=== PATIENT | female | born 1945 | race Caucasian/White ===

== ENCOUNTER 2019-07-07 18:07 | Inpatient (IN) | payer OTHER ==
[~2019-07-07] VITALS: Ht 167.6 cm; Wt 73.0 kg
[2019-07-07 18:20] VITALS: BP 140/70
--- NOTE | 2019-07-07 18:20 | NUR ---
ED Nurse Note: pt ambulated into ed from home with CO coughing, sore throat, headache, jaw pain, teeth pain, flu like symptoms that started last night, pain 8/10. pt aao x 4. ERMD at bedside. Pt reports taking warfarin, recently having open heart surgery, and hx of anemia
--- NOTE | 2019-07-07 18:30 | NUR ---
ED Nurse Note: iv started, medications adminstered. pt tolerated well. flu swab sent to lab
[2019-07-07] MEDS: Albuterol ud Inhalation HHN SCH ×3 (18:57→19:03)
--- NOTE | 2019-07-07 18:59 | Emergency Room Report ---
History of Present Illness General Chief Complaint: Flu Like Symptoms Source: Patient (Chet Garcia) Present Illness HPI 73-year-old female with history of heart failure, pacemaker, renal failure, and 2 open heart surgeries here complaining of 1 day of cough and congestion, fever and chills. [place], reports the last time that she had similar symptoms she ended up having pneumonia. Patient is on carvedilol, warfarin, lisinopril, amlodipine. 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 Complains of chest pain however denies pain radiation. Complains of shortness of breath, headache, and chills. Patient has pulse ox of 93%. Vital signs are otherwise within normal limits. Patient appears in mild distress. Denies tobacco smoke, drug use, alcohol intake. Denies pleuritic chest pain, leg swelling, abdominal pain, nausea vomiting. Has been taking Tylenol with moderate relief her symptoms. (Chet Garcia) Allergies: Coded Allergies: No Known Allergies (Unverified , 07/07/19) Patient History Past Medical History: see triage record Past Surgical History: unable to obtain Pertinent Family History: none Now: No Immunizations: UTD Reviewed Nursing Documentation: PMH: Agreed; PSxH: Agreed (Chet Garcia) Nursing Documentation-PMH Past Medical History: No History, Except For Hx Cardiac Problems: Yes - mechanical heart valve Hx Pacemaker: Yes (Chet Garcia) Review of Systems All Other Systems: negative except mentioned in HPI (Chet Garcia) Physical Exam Vital Signs Date Time Temp Pulse Resp B/P (MAP) Pulse Ox O2 Delivery O2 Flow Rate FiO2 07/07/19 18:16 99.5 80 20 137/72 (93) 93 Room Air Sp02 EP Interpretation: abnormal - pulse ox 93% General Appearance: no apparent distress, alert, GCS 15, non-toxic Head: normocephalic, atraumatic Eyes: bilateral eye normal inspection, bilateral eye PERRL ENT: hearing grossly normal, normal pharynx, no angioedema, normal voice Neck: full range of motion, supple, thyroid normal, no meningismus, no bony tend, no carotid bruits, supple/symm/no masses Respiratory: chest non-tender, no respiratory distress, no retraction, no accessory muscle use, no wheezing, decreased breath sounds, speaking full sentences Cardiovascular #1: no edema, no gallop, no murmur, normal capillary refill, other - irregular rhythm Gastrointestinal: normal bowel sounds, non tender, soft, non-distended, no guarding, no rebound Rectal: deferred Genitourinary: no CVA tenderness Musculoskeletal: back normal, normal range of motion, no calf tenderness, gait/ station normal, non-tender Neurologic: alert, motor strength/tone normal, oriented x3, sensory intact, responsive, speech normal Psychiatric: judgement/insight normal, memory normal, mood/affect normal, no suicidal/homicidal ideation Skin: no rash Lymphatic: no adenopathy (Chet Garcia) Medical Decision Making PA Attestation All diagnoses and treatment plans were reviewed and discussed with my supervising physician Dr. Cronin (Chet Garcia) PA Attestation I participated in the care of this patient along with DONG Jolly Briefly, this is a 73-year-old female with a history of CAD status post CABG, heart failure status post pacemaker, chronic kidney disease presenting for evaluation of shortness of breath and cough. Symptoms started earlier today. Came in tachypneic, saturating 93%. Chest x-ray concerning for right lower lobe pneumonia. Treated with ceftriaxone azithromycin. Also signs of pulmonary congestion consistent with her history of CHF. Peptide elevated and she was given Lasix. Saturations improving. She is on a percent on room air. Blood gas shows slight hypoxemia with a PO2 64%. No respiratory distress at this time. Remaining labs within normal limits. Influenza negative. She will be admitted for treatment of pneumonia and further monitoring. (Joey Cronin MD) Diagnostic Impression: Primary Impression: Pneumonia Additional Impression: CHF exacerbation ER Course 73-year-old female with history of heart failure, pacemaker, renal failure, and 2 open heart surgeries here complaining of 1 day of cough and congestion, fever and chills. [place], reports the last time that she had similar symptoms she ended up having pneumonia. Patient is on carvedilol, warfarin, lisinopril, amlodipine. 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 Complains of chest pain however denies pain radiation. Complains of shortness of breath, headache, and chills. Patient has pulse ox of 93%. Vital signs are otherwise within normal limits. Patient appears in mild distress. Denies tobacco smoke, drug use, alcohol intake. Denies pleuritic chest pain, leg swelling, abdominal pain, nausea vomiting. Has been taking Tylenol with moderate relief her symptoms. Ddx considered but are not limited to: [place], Angina, pneumonia, CHF, COPD, Vital signs: are WNL, pt. is afebrile H&PE are most consistent with PNA, CHF exacerbation ORDERS: EKG, Chest XR, cardiac labs(troponin, CBC, CMP, , BNP), ED INTERVENTIONS: Albuterol inhaler treatment, Tylenol,lasix Patient was admitted with diagnosis of pneumonia and CHF exacerbation to Dr. Wang under supervision of : Mehrdad pt stable at time of admission (Chet Garcia) EKG Diagnostic Results Rate: other - ventricular paced rhythm Rhythm: other - ventricular paced rhythm ST Segments: no acute changes (Chet Garcia) Chest X-Ray Diagnostic Results Chest X-Ray Diagnostic Results : Chest X-Ray Ordered: Yes # of Views/Limited/Complete: 1 View Indication: Shortness of Breath EP Interpretation: Yes PA Xray: Interpretation reviewed, by supervising MD, and agrees with findings. Interpretation: no pneumothorax, other - infiltrates RLL Impression: Other - PNA Electronically Signed by: Chet Caceres PA-C (Chet Garcia) Last Vital Signs Date Time Temp Pulse Resp B/P (MAP) Pulse Ox O2 Delivery O2 Flow Rate FiO2 07/07/19 18:16 99.5 80 20 137/72 (93) 93 Room Air (Chet Garcia) Disposition: ADMITTED INPATIENT Condition: Stable Chet Garcia Jul 07, 2019 18:59 Joey Cronin MD Jul 07, 2019 21:44
[2019-07-07 19:01] LABS: HEMATOCRIT 32.3 % (37.0-47.0); HEMOGLOBIN 10.9 G/DL (12.0-16.0); MEAN CORPUSCULAR VOLUME 93 FL (80-99); PLATELET COUNT 135 K/UL (150-450); RED BLOOD COUNT 3.46 M/UL (4.20-5.40); RED CELL DISTRIBUTION WIDTH 11.1 % (11.6-14.8); WHITE BLOOD COUNT 4.8 K/UL (4.8-10.8)
[2019-07-07 19:04] LABS: BASOPHILS % (AUTO) 1.1 % (0.0-2.0); EOSINOPHILS % (AUTO) 0.1 % (0.0-3.0); LYMPHOCYTES % (AUTO) 7.4 % (20.0-45.0); MONOCYTES % (AUTO) 5.8 % (1.0-10.0); NEUTROPHILS % (AUTO) 85.5 % (45.0-75.0)
--- NOTE | 2019-07-07 19:05 | NUR ---
ED Nurse Note: pt endorsed to Yareli Frankel. Vital signs in stable condition. pt resting in bed, RT administering breathing tx
[2019-07-07 19:13] LABS: INR 2.1 (0.9-1.1)
[2019-07-07] MEDS ORDERED: cefTRIAXone 1 GM in NS 55 ML IVPB ONE (19:15)
[2019-07-07 19:21] LABS: ANION GAP 7 mmol/L (5-15); BLOOD UREA NITROGEN 27 mg/dL (7-18); CALCIUM 9.3 MG/DL (8.5-10.1); CARBON DIOXIDE 26 MMOL/L (21-32); CHLORIDE 94 MMOL/L (98-107); CREATININE 1.5 MG/DL (0.55-1.30); POTASSIUM 4.8 MMOL/L (3.5-5.1); SODIUM 127 MMOL/L (136-145)
[2019-07-07 19:26] LABS: ALANINE AMINOTRANSFERASE 74 U/L (12-78); ALBUMIN/GLOBULIN RATIO 1.2 (1.0-2.7); ALKALINE PHOSPHATASE 130 U/L (46-116); ASPARTATE AMINO TRANSFERASE 68 U/L (15-37); BILIRUBIN,TOTAL 0.9 MG/DL (0.2-1.0)
[2019-07-07 20:43] LABS: APPEARANCE,URINE CLEAR; BILIRUBIN, URINE NEGATIVE (NEGATIVE); COLOR,URINE PALE YELLOW; GLUCOSE, URINE (UA) NEGATIVE (NEGATIVE); KETONES,URINE NEGATIVE (NEGATIVE); LEUKOCYTE ESTERASE ,URINE NEGATIVE (NEGATIVE); NITRITE,URINE NEGATIVE (NEGATIVE); PH,URINE 5 (4.5-8.0); PROTEIN,URINE NEGATIVE (NEGATIVE); UROBILINOGEN,URINE NORMAL MG/DL (0.0-1.0)
--- NOTE | 2019-07-07 21:00 | NUR ---
ED Nurse Note: pt's oral temp is 98.8
--- NOTE | 2019-07-07 21:40 | NUR ---
ED Nurse Note: pt put on 2L [place] per request of DONG Rosenberg. SpO2 is 97%
[2019-07-07] MEDS ORDERED: Azithromycin 250mg tab ORAL ONE (21:45)
[2019-07-07 22:00] VITALS: BP 138/67
[2019-07-08] MEDS ORDERED: Miralax 17gm pkt ORAL PRN
[2019-07-08] MEDS ORDERED: Ketorolac 30mg Inj IV ONE (01:15)
[2019-07-08] MEDS ORDERED: Morphine Sulfate 4mg/ml Inj (IV USE ONLY) IVP ONE (01:30)
--- NOTE | 2019-07-08 02:59 | NUR ---
HAND-OFF: Report given to JOSE Hairston. pt moved to ED bed 5 onto hospital bed
--- NOTE | 2019-07-08 03:00 | NUR ---
ED Nurse Note: Got patient from JOSE Frankel from [facility]. Patient AAO x4,VSS at this time.
[2019-07-08 04:00] VITALS: BP 121/65
--- NOTE | 2019-07-08 06:28 | NUR ---
ED Nurse Note: Patient was admited to Tele unit due to pneumonia, CHF exaserbation. Patient was transfered to the unit via gurney by ACLS protocol, with all belongings. Patient AAO x4, VDSS at this time.
--- NOTE | 2019-07-08 07:30 | NUR ---
NURSE NOTES: Received report from JOSE Isaac. Patient is resting in bed, in stable condition. No s/sx of SOB, breathing is even and unlabored. Per pt states does not need oxygen via nasal cannula. Denies any presence of pain or discomfort at this time. Bed is in lowest position, brakes engaged. Call light is kept within easy reach. Will continue to monitor patient.
--- NOTE | 2019-07-08 07:32 | NUR ---
Received pt from ER at 0635am from Nathaly GARCIA making her an Admission for the AM RN per facility protocol. I received pt with her belongings including iPhone6. vitals 130/66 HR 82 Temperature 102, RR 20 98% on 2L of O2. I put monitoring on patient. Patient is Vpaced with pacemaker. I endorsed all to Polina Reyes RN including fever/temp. We introduced him to the patient at bedside as pt was dry heaving.
--- NOTE | 2019-07-08 07:35 | History and Physical ---
History of Present Illness General Date patient seen: Jul 08, 2019 Reason for Hospitalization: Flu Like Symptoms Present Illness HPI 73-year-old female with history of heart failure, pacemaker, renal failure, and 2 open heart surgeries presented to the ED complaining of 1 day of cough and congestion, fever and chills. [place], reports the last time that she had similar symptoms she ended up having pneumonia. She lives in [place] and [place], visiting [place] for the holiday. 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 Complains of chest pain however denies pain radiation. Complains of shortness of breath, headache, and chills. Patient denies any chest pain, palpitations or syncope. Her abdomen feels bloated, she is nauseous and vomited twice, non bloody. She is mostly vegan, eats fish and chicken once a week. She is a former smoker. Denies etoh or illicit drug use. Denies sick contacts. She says she feels dehydrated and doesn't think she is in chf exacerbation due to lack of lower extremity swelling in the ER she had a pulse ox of 93%. Vital signs were otherwise within normal limits. Patient was tachypneic and in mild distress. Chest x-ray concerning for right lower lobe pneumonia. Treated with ceftriaxone azithromycin. Also signs of pulmonary congestion consistent with her history of CHF. Probnp elevated and she was given Lasix. Saturations improved. Blood gas showed slight hypoxemia with a PO2 64%. Influenza negative. Other lab abnormalites included hyponatremia with sodium 127, bun 27, creatinine 1.5 (unknown baseline) , AST 68, ALP 130, INR 2.1, troponin negative, H/H: 10.9/32.3, platelet 135 Past Medical History: CABG, HTN, Pacemaker, mitral carlos replacement, CKD Past Surgical History: CABG, mitral valve replacement Family History: HTN Social history: Lives in [place], denies etoh or cigarette use Allergies: Coded Allergies: No Known Allergies (Unverified , 07/07/19) Patient History Healthcare decision maker Resuscitation status Advanced Directive on File Review of Systems Constitutional: Reports: fever, malaise, weakness Respiratory: Reports: cough, shortness of breath Cardiovascular: Reports: chest pain; Denies: no symptoms, see HPI, edema, palpitations, syncope, PND, other Gastrointestinal: Reports: nausea, vomiting Genitourinary: Denies: no symptoms, see HPI, discharge, dysuria, frequency, hematuria, pain, retention, incontinence, urgency, vag bleed/dc, other Musculoskeletal: Denies: no symptoms, see HPI, back pain, gout, joint pain, joint swelling, muscle pain, muscle stiffness, other Neurological: Denies: no symptoms, see HPI, headache, numbness, paresthesia, seizure, tingling, tremors, focal weakness, syncope, dizziness, other Physical Exam General Appearance: no apparent distress Lines, tubes and drains: peripheral HEENT: normocephalic, atraumatic, anicteric, PERRL, EOMI, supple, no JVD Respiratory/Chest: chest wall non-tender, lungs clear, no accessory muscle use , decreased breath sounds - RLL Cardiovascular/Chest: normal peripheral pulses, normal rate, regular rhythm, systolic murmur Abdomen: normal bowel sounds, non tender, soft, no organomegaly, no mass Extremities: normal range of motion, non-tender, trace edema 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, no motor/sensory deficits, alert, oriented x 3, responsive, normal mood/affect Musculoskeletal: normal muscle bulk Last 24 Hour Vital Signs Date Time Temp Pulse Resp B/P (MAP) Pulse Ox O2 Delivery O2 Flow Rate FiO2 07/08/19 06:26 98.8 76 20 121/65 100 Nasal Cannula 2.0 21 07/08/19 04:00 98.8 76 20 121/65 100 Nasal Cannula 2.0 21 07/08/19 02:05 98.8 07/07/19 22:00 98.8 87 20 138/67 100 Nasal Cannula 2.0 07/07/19 19:25 99.5 07/07/19 19:17 86 20 100 Room Air 21 84 20 100 07/07/19 19:07 83 20 100 Room Air 21 81 20 100 07/07/19 18:57 81 20 100 Room Air 21 75 20 96 07/07/19 18:20 85 19 Room Air 07/07/19 18:20 99.5 80 18 140/70 93 Room Air 07/07/19 18:16 99.5 80 20 137/72 (93) 93 Room Air Intake and Output 07/07/19 07/08/19 19:00 07:00 Intake Total 0 ml Balance 0 ml Intake Oral 0 ml Laboratory Tests Test 07/07/19 18:49 07/07/19 19:47 07/07/19 20:15 White Blood Count 4.8 K/UL (4.8-10.8) Red Blood Count 3.46 M/UL (4.20-5.40) L Hemoglobin 10.9 G/DL (12.0-16.0) L Hematocrit 32.3 % (37.0-47.0) L Mean Corpuscular Volume 93 FL (80-99) Mean Corpuscular Hemoglobin 31.6 PG (27.0-31.0) H Mean Corpuscular Hemoglobin Concent 33.8 G/DL (32.0-36.0) Red Cell Distribution Width 11.1 % (11.6-14.8) L Platelet Count 135 K/UL (150-450) L Mean Platelet Volume 5.6 FL (6.5-10.1) L Neutrophils (%) (Auto) 85.5 % (45.0-75.0) H Lymphocytes (%) (Auto) 7.4 % (20.0-45.0) L Monocytes (%) (Auto) 5.8 % (1.0-10.0) Eosinophils (%) (Auto) 0.1 % (0.0-3.0) Basophils (%) (Auto) 1.1 % (0.0-2.0) Prothrombin Time 21.7 SEC (9.30-11.50) H Prothromb Time International Ratio 2.1 (0.9-1.1) H Activated Partial Thromboplast Time 36 SEC (23-33) H Sodium Level 127 MMOL/L (136-145) L Potassium Level 4.8 MMOL/L (3.5-5.1) Chloride Level 94 MMOL/L (98-107) L Carbon Dioxide Level 26 MMOL/L (21-32) Anion Gap 7 mmol/L (5-15) Blood Urea Nitrogen 27 mg/dL (7-18) H Creatinine 1.5 MG/DL (0.55-1.30) H Estimat Glomerular Filtration Rate mL/min (>60) Glucose Level 108 MG/DL (74-106) H Calcium Level 9.3 MG/DL (8.5-10.1) Total Bilirubin 0.9 MG/DL (0.2-1.0) Aspartate Amino Transf (AST/SGOT) 68 U/L (15-37) H Alanine Aminotransferase (ALT/SGPT) 74 U/L (12-78) Alkaline Phosphatase 130 U/L (46-116) H Troponin I 0.001 ng/mL (0.000-0.056) Pro-B-Type Natriuretic Peptide 27055 pg/mL (0-125) H Total Protein 7.3 G/DL (6.4-8.2) Albumin 4.0 G/DL (3.4-5.0) Globulin 3.3 g/dL Albumin/Globulin Ratio 1.2 (1.0-2.7) Arterial Blood pH 7.449 (7.350-7.450) Arterial Blood Partial Pressure CO2 33.7 mmHg (35.0-45.0) L Arterial Blood Partial Pressure O2 63.8 mmHg (75.0-100.0) L Arterial Blood HCO3 22.8 mmol/L (22.0-26.0) Arterial Blood Oxygen Saturation 93.0 % (95-100) L Arterial Blood Base Excess -0.7 (-2-2) Chris Test Positive Urine Color Pale yellow Urine Appearance Clear Urine pH 5 (4.5-8.0) Urine Specific [place] 1.010 (1.005-1.035) Urine Protein Negative (NEGATIVE) Urine Glucose (UA) Negative (NEGATIVE) Urine Ketones Negative (NEGATIVE) Urine Blood Negative (NEGATIVE) Urine Nitrite Negative (NEGATIVE) Urine Bilirubin Negative (NEGATIVE) Urine Urobilinogen Normal MG/DL (0.0-1.0) Urine Leukocyte Esterase Negative (NEGATIVE) Microbiology Date/Time Source Procedure Growth Status 07/07/19 18:41 Nasal Nares - Final Complete 07/07/19 18:41 Nasal Nares - Final Complete Height (Feet): 5 Height (Inches): 6.00 Weight (Pounds): 140 Medications Current Medications Medications (Trade) Dose Ordered Sig/Carlos Route PRN Reason Start Time Stop Time Status Last Admin Dose Admin Acetaminophen (Tylenol) 650 mg Q4H PRN ORAL Mild Pain (Pain Scale 1-3) 07/08/19 00:00 08/07/19 00:00 Acetaminophen (Tylenol) 650 mg Q4H PRN ORAL fever 07/08/19 00:00 08/07/19 00:00 Albuterol/ Ipratropium (Albuterol/ Ipratropium) 3 ml Q6HRT PRN HHN Shortness of Breath 07/08/19 00:00 07/13/19 00:00 Azithromycin 500 mg/Sodium Chloride 275 ml @ 275 mls/hr Q24H IV 07/08/19 21:00 07/15/19 20:59 Ceftriaxone Sodium 1 gm/ Sodium Chloride 55 ml @ 110 mls/hr Q24H IVPB 07/08/19 19:00 07/15/19 18:59 Dextrose (Dextrose 50%) 25 ml Q30M PRN IV Hypoglycemia 07/08/19 00:00 08/07/19 00:00 Dextrose (Dextrose 50%) 50 ml Q30M PRN IV Hypoglycemia 07/08/19 00:00 08/07/19 00:00 Docusate Sodium (Colace) 100 mg EVERY 12 HOURS ORAL 07/08/19 09:00 08/07/19 08:59 Furosemide (Lasix) 40 mg Q12HR IV 07/08/19 09:00 08/07/19 08:59 Heparin Sodium (Porcine) (Heparin 5000 units/ml) 5,000 units Q12HR SUBQ 07/08/19 09:00 08/07/19 08:59 Polyethylene Glycol (Miralax) 17 gm DAILYPRN PRN ORAL Constipation 07/08/19 00:00 08/07/19 00:00 Objective Narrative EKG strip personally reviewed by me: ventricular pace rhythm at 75 bpm, no acute st-t changes CXR: per my interpretation, no radiology read yet. pulmonary edema, cardiomegaly Assessment/Plan Status: stable Assessment/Plan: This is a 73-year-old female visiting from [place] with extensive cardiac problems including CABG, pacemaker, mitral valve replacement on Coumadin, CKD who presented with headache nausea vomiting fever and chills, flulike symptoms. She denies any chest pain or any significant shortness of breath. Her chest x -ray shows pulmonary edema and cardiomegaly, no definite consolidation. Her EKG is without any acute ST-T segment changes, her proBNP is elevated at around 12,000, her troponin is negative. She is hyponatremic with sodium of 127, her BUN is 27 and her creatinine is 1.5, she is anemic with hemoglobin of 10.9 and thrombocytopenic with platelet count of 135. Her influenza swab is negative for influenza A and B. Although her chest x-ray shows pulmonary edema and her proBNP is elevated clinically and based on her other labs she looks dehydrated. Problem list: 1. Possible influenza. Without sepsis. There may be superimposed pneumonia as well. 2. RENA on CKD. Of note she received Toradol and Lasix in the ER which is made the RENA worse today 3. Coagulopathy due to Coumadin intake with INR of 2.1. This is not in the therapeutic range for this patient with mechanical valve 4. Status post mechanical mitral valve, CABG, pacemaker. 5. History of congestive heart failure, unsure if systolic or diastolic. Clinically she is dry and dehydrated. 6. Anemia. No evidence of acute blood loss 7. Thrombocytopenia. Unknown baseline could be due to infection 8. Hyponatremia. This seems to be hypovolemic hyponatremia. 9. Abnormal LFTs. 10. Contraction alkalosis from dehydration Plan. Admit to telemetry Serial cardiac enzymes and EKG Treat empirically for community-acquired pneumonia and influenza even though her influenza swab is negative. She will receive IV ceftriaxone, azithromycin, Tamiflu renal dose at 30 mg twice daily Follow blood cultures. Obtain sputum cultures if able to give any Pulmonary consult with Dr. Knutson. Case discussed with and Recs appreciated Monitor renal function. Avoid nephrotoxic medications. Stop Lasix. Renal consultation with Dr. Hagen Gentle hydration with IV NS at 100 mL/h. Hold Lasix and spironolactone. Monitor respiratory status, I's and O's 2D echocardiogram Cardiology consult with Monitor platelet count Resume home dose of Coumadin Hold lisinopril due to worsening renal function. Continue carvedilol and amiodarone Anemia work-up Monitor serum sodium Daily INR, goal 2.5-3.5. Oxygen as needed to keep oxygen saturations greater than 95% I spent 70 minutes on this encounter. Greater than 50% spent on counseling and care coordination. I spent 35 minutes in reviewing her chart and records including imaging and labs. Case discussed with patient, RN and consultants I initiated goals of care discussion. POLST form will be provided and will try to sign by discharge from the hospital Time of this note may not reflect time of encounter. Nicholas Garrison M.D. Jul 08, 2019 07:35
[2019-07-08 08:00] VITALS: BP 139/71
[2019-07-08 08:27] LABS: BASOPHILS % (AUTO) 1.2 % (0.0-2.0); HEMATOCRIT 30.6 % (37.0-47.0); LYMPHOCYTES % (AUTO) 9.2 % (20.0-45.0); MEAN CORPUSCULAR VOLUME 94 FL (80-99); MONOCYTES % (AUTO) 7.8 % (1.0-10.0); NEUTROPHILS % (AUTO) 81.7 % (45.0-75.0); PLATELET COUNT 116 K/UL (150-450); RED BLOOD COUNT 3.24 M/UL (4.20-5.40); RED CELL DISTRIBUTION WIDTH 12.1 % (11.6-14.8); WHITE BLOOD COUNT 4.7 K/UL (4.8-10.8)
[2019-07-08 08:47] LABS: ANION GAP 6 mmol/L (5-15); BLOOD UREA NITROGEN 26 mg/dL (7-18); CALCIUM 9.2 MG/DL (8.5-10.1); CARBON DIOXIDE 28 MMOL/L (21-32); CHLORIDE 90 MMOL/L (98-107); CREATININE 1.7 MG/DL (0.55-1.30); POTASSIUM 4.6 MMOL/L (3.5-5.1); SODIUM 124 MMOL/L (136-145)
[2019-07-08] MEDS ORDERED: Heparin 5000 units/ml inj SUBQ SCH (09:00)
[2019-07-08] MEDS ORDERED: Docusate 100mg cap ORAL SCH (09:00)
[2019-07-08] MEDS ORDERED: Amiodarone 200mg tab ORAL SCH (09:30)
[2019-07-08] MEDS ORDERED: Spironolactone 25mg tab ORAL SCH (09:30)
[2019-07-08] MEDS ORDERED: Carvedilol 25mg Tab ORAL SCH ×2 (09:30→21:00)
--- NOTE | 2019-07-08 10:00 | NUR ---
NURSE NOTES: Per Dr. Garrison place patient back on Warfarin per pharmacy to dose. Maintain INR between 2.5-3.5 d/t mitral valve implant. Notified pharmacy. Noted.
--- NOTE | 2019-07-08 10:10 | NUR ---
PT NOTE Received MD order for PT evaluation. Christian GARCIA requesting to defer PT evaluation as patient is with c/o nausea. Will follow up tomorrow.
[2019-07-08 12:00] VITALS: BP 110/52
--- NOTE | 2019-07-08 12:37 | NUR ---
NURSE NOTES: Per patient and patient's family request, pt wishes to have code status changed to "Do not intubate." Patient is okay with CPR and trial tube feeding. Patient is alert and oriented x 4, signed POLST. Copy of POLST placed in chart. Dr. Garrison made aware and changed code status to "Do not intubate." Charge nurse made aware.
--- NOTE | 2019-07-08 12:58 | NUR ---
*-* INSURANCE *-* ALL AVAILABLE CLINICALS HAS BEEN FAXED TO: [facility]: [place] [phone] FAX [phone] Work Work Addendum: 07/08/19 at 1306 by LEONEL QUINTERO CM F:[phone]
--- NOTE | 2019-07-08 13:32 | NUR ---
NURSE NOTES: Called and left message with Dr. Hagen's national secretary regarding patient sodium level of 124 and magnesium level of 1.1. Per national secretary will inform Dr. Hagen. Noted. Will continue to monitor patient.
--- NOTE | 2019-07-08 13:39 | NUR ---
CASE MANAGEMENT:REVIEW 73 YR OLD FEMALE WALKED IN TO ER CC: FLU LIKE SYMPTOMS PMH: RECENT OPEN HEART SURGERY....LIVES IN [place] AND [place]...VISITING [place] SI: PNEUMONIA. CHF 99.5 80 20 137/72 93% ON RA NA-127 BNP+[id number] PCO2-33.7 PO2-63.8 IS: PLACED ON 2L/NC ALBUTEROL HHN Q15 MIN X3 TYLENOL PO IV ROCEPHIN IV LASIX : TO TELEMETRY
--- NOTE | 2019-07-08 15:15 | Cardiac Electrophysiology PN ---
Subjective Subjective [id number] Objective Last 24 Hour Vital Signs Date Time Temp Pulse Resp B/P (MAP) Pulse Ox O2 Delivery O2 Flow Rate FiO2 07/08/19 12:00 100.0 73 20 110/52 (71) 97 07/08/19 12:00 2.0 07/08/19 12:00 73 07/08/19 11:24 76 121/65 07/08/19 11:14 Nasal Cannula 4.0 36 07/08/19 09:00 Nasal Cannula 2.0 07/08/19 08:44 100.0 07/08/19 08:38 Nasal Cannula 2.0 07/08/19 08:00 102.2 82 20 139/71 (93) 94 07/08/19 06:26 98.8 76 20 121/65 100 Nasal Cannula 2.0 21 07/08/19 04:00 98.8 76 20 121/65 100 Nasal Cannula 2.0 21 07/08/19 02:05 98.8 07/07/19 22:00 98.8 87 20 138/67 100 Nasal Cannula 2.0 21 07/07/19 19:25 99.5 07/07/19 19:17 86 20 100 Room Air 21 84 20 100 07/07/19 19:07 83 20 100 Room Air 21 81 20 100 07/07/19 18:57 81 20 100 Room Air 21 75 20 96 07/07/19 18:20 85 19 Room Air 07/07/19 18:20 99.5 80 18 140/70 93 Room Air 07/07/19 18:16 99.5 80 20 137/72 (93) 93 Room Air Intake and Output 07/07/19 07/08/19 19:00 07:00 Intake Total 0 ml Balance 0 ml Intake Oral 0 ml Laboratory Tests Test 07/07/19 18:49 07/07/19 19:47 07/07/19 20:15 07/08/19 07:58 White Blood Count 4.8 K/UL (4.8-10.8) 4.7 K/UL (4.8-10.8) L Red Blood Count 3.46 M/UL (4.20-5.40) L 3.24 M/UL (4.20-5.40) L Hemoglobin 10.9 G/DL (12.0-16.0) L 10.0 G/DL (12.0-16.0) L Hematocrit 32.3 % (37.0-47.0) L 30.6 % (37.0-47.0) L Mean Corpuscular Volume 93 FL (80-99) 94 FL (80-99) Mean Corpuscular Hemoglobin 31.6 PG (27.0-31.0) H 30.9 PG (27.0-31.0) Mean Corpuscular Hemoglobin Concent 33.8 G/DL (32.0-36.0) 32.8 G/DL (32.0-36.0) Red Cell Distribution Width 11.1 % (11.6-14.8) L 12.1 % (11.6-14.8) Platelet Count 135 K/UL (150-450) L 116 K/UL (150-450) L Mean Platelet Volume 5.6 FL (6.5-10.1) L 5.7 FL (6.5-10.1) L Neutrophils (%) (Auto) 85.5 % (45.0-75.0) H 81.7 % (45.0-75.0) H Lymphocytes (%) (Auto) 7.4 % (20.0-45.0) L 9.2 % (20.0-45.0) L Monocytes (%) (Auto) 5.8 % (1.0-10.0) 7.8 % (1.0-10.0) Eosinophils (%) (Auto) 0.1 % (0.0-3.0) 0.0 % (0.0-3.0) Basophils (%) (Auto) 1.1 % (0.0-2.0) 1.2 % (0.0-2.0) Prothrombin Time 21.7 SEC (9.30-11.50) H Prothromb Time International Ratio 2.1 (0.9-1.1) H Activated Partial Thromboplast Time 36 SEC (23-33) H Sodium Level 127 MMOL/L (136-145) L 124 MMOL/L (136-145) L Potassium Level 4.8 MMOL/L (3.5-5.1) 4.6 MMOL/L (3.5-5.1) Chloride Level 94 MMOL/L (98-107) L 90 MMOL/L (98-107) L Carbon Dioxide Level 26 MMOL/L (21-32) 28 MMOL/L (21-32) Anion Gap 7 mmol/L (5-15) 6 mmol/L (5-15) Blood Urea Nitrogen 27 mg/dL (7-18) H 26 mg/dL (7-18) H Creatinine 1.5 MG/DL (0.55-1.30) H 1.7 MG/DL (0.55-1.30) H Estimat Glomerular Filtration Rate mL/min (>60) mL/min (>60) Glucose Level 108 MG/DL (74-106) H 101 MG/DL (74-106) Calcium Level 9.3 MG/DL (8.5-10.1) 9.2 MG/DL (8.5-10.1) Total Bilirubin 0.9 MG/DL (0.2-1.0) Aspartate Amino Transf (AST/SGOT) 68 U/L (15-37) H Alanine Aminotransferase (ALT/SGPT) 74 U/L (12-78) Alkaline Phosphatase 130 U/L (46-116) H Troponin I 0.001 ng/mL (0.000-0.056) Pro-B-Type Natriuretic Peptide 72644 pg/mL (0-125) H Total Protein 7.3 G/DL (6.4-8.2) Albumin 4.0 G/DL (3.4-5.0) Globulin 3.3 g/dL Albumin/Globulin Ratio 1.2 (1.0-2.7) Arterial Blood pH 7.449 (7.350-7.450) Arterial Blood Partial Pressure CO2 33.7 mmHg (35.0-45.0) L Arterial Blood Partial Pressure O2 63.8 mmHg (75.0-100.0) L Arterial Blood HCO3 22.8 mmol/L (22.0-26.0) Arterial Blood Oxygen Saturation 93.0 % (95-100) L Arterial Blood Base Excess -0.7 (-2-2) Chris Test Positive Urine Color Pale yellow Urine Appearance Clear Urine pH 5 (4.5-8.0) Urine Specific [place] 1.010 (1.005-1.035) Urine Protein Negative (NEGATIVE) Urine Glucose (UA) Negative (NEGATIVE) Urine Ketones Negative (NEGATIVE) Urine Blood Negative (NEGATIVE) Urine Nitrite Negative (NEGATIVE) Urine Bilirubin Negative (NEGATIVE) Urine Urobilinogen Normal MG/DL (0.0-1.0) Urine Leukocyte Esterase Negative (NEGATIVE) Magnesium Level 1.1 MG/DL (1.8-2.4) L Thyroid Stimulating Hormone (TSH) 1.089 uiU/mL (0.358-3.740) Test 07/08/19 11:09 07/08/19 14:15 Arterial Blood pH 7.443 (7.350-7.450) Arterial Blood Partial Pressure CO2 34.7 mmHg (35.0-45.0) L Arterial Blood Partial Pressure O2 126.0 mmHg (75.0-100.0) H Arterial Blood HCO3 23.2 mmol/L (22.0-26.0) Arterial Blood Oxygen Saturation 98.3 % (95-100) Arterial Blood Base Excess -0.5 (-2-2) Chris Test Positive Urine Osmolality 264 mOsm/kg (429-449) L Urine Random Sodium 68 mmol/L (20-110) Microbiology Date/Time Source Procedure Growth Status 07/07/19 18:41 Nasal Nares - Final Complete 07/07/19 18:41 Nasal Nares - Final Complete Jose Hawkins MD Jul 08, 2019 15:15
--- NOTE | 2019-07-08 15:28 | Diagnostic Imaging Report ---
Indication: Shortness of breath Technique: One view of the chest Comparison: none Findings: Patchy opacities are seen in the right perihilar region, right lung base, and left perihilar region. Blunting of the right costophrenic sulcus suggests a small pleural effusion. The heart is enlarged. There is a right chest right ventricular pacemaker. There is evidence of prior cardiac valve repair. Impression: Bilateral patchy infiltrates versus edema, as described Cardiomegaly Other findings as noted
--- NOTE | 2019-07-08 15:52 | Consultation ---
Consult Note Consult Note initial note - brief asked to eval for renal failure and electrolyte imbalance 73-year-old female with history of heart failure, pacemaker, renal failure, and 2 open heart surgeries here complaining of 1 day of cough and congestion, fever and chills. [place], reports the last time that she had similar symptoms she ended up having pneumonia. Patient is on carvedilol, warfarin, lisinopril, amlodipine. 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 Complains of chest pain however denies pain radiation. Complains of shortness of breath, headache, and chills. Patient has pulse ox of 93%. Vital signs are otherwise within normal limits. Patient appears in mild distress. Denies tobacco smoke, drug use, alcohol intake. Denies pleuritic chest pain, leg swelling, abdominal pain, nausea vomiting. Has been taking Tylenol with moderate relief her symptoms. No Known Allergies (Unverified , 07/07/19) Past Medical History: No History, Except For Hx Cardiac Problems: Yes - mechanical heart valve Hx Pacemaker: Yes Assessment/Plan Renal Failure HypoNatremia Dehydration Pneumonia Anemia EjFx 35% Cardiomyopathy 3% salin + Lasix Keep I<O Monitor lytes Mag supplement Afterload reduction per orders Jg Hagen MD Jul 08, 2019 15:52
[2019-07-08 16:00] VITALS: BP 106/60
[2019-07-08] MEDS ORDERED: NaCl 3% 500ml 500 ML IV ONE (17:00)
[2019-07-08] MEDS ORDERED: Warfarin Sodium 3mg ORAL SCH (17:00)
[2019-07-08] MEDS: Docusate 100mg cap ORAL SCH (17:54)
[2019-07-08] MEDS ORDERED: cefTRIAXone 1 GM in NS 55 ML IVPB SCH (19:00)
--- NOTE | 2019-07-08 19:10 | NUR ---
NURSE NOTES: Received report from JOSE Gonzales. Pt is awake, sitting at the edge of the bed; comfortably resting. No signs of acute distress noted. Pt denies any pain at this time. AOx4; able to make needs known. Checked IV site, lines, and rate; patent and running. No erythema, bleeding, or infiltration noted. Bed at lowest position. Brakes on. Siderails up x3. Call light within reach. Will continue to monitor.
--- NOTE | 2019-07-08 19:30 | NUR ---
HAND-OFF: Report given to JOSE Power.
[2019-07-08 20:00] VITALS: BP 118/54
--- NOTE | 2019-07-08 20:00 | Consultation ---
DATE OF CONSULTATION: 07/08/2019 PULMONARY CONSULTATION CONSULTING PHYSICIAN: Nael Knutson M.D. HISTORY OF PRESENT ILLNESS: This is a 73-year-old female with history of heart failure, permanent pacemaker, renal failure came in the emergency room complaining of chest congestion and shortness of breath. The patient states that she has been having rhinorrhea and runny nose as well. She has been smoker in the past. Her imaging studies were obtained, which showed cardiomegaly as well as vascular congestion. I do not see evidence for pneumonia. She was given antibiotics. At this point, she is feeling better. Her white count is normal and there is no left shift. PAST HISTORY: CABG, hypertension, pacemaker, mitral valve replacement, CKD. FAMILY HISTORY: Hypertension. Lives in [place]. ALLERGIES: None. CURRENT MEDICATIONS: Reviewed and reconciled in chart and include cortisone, Coreg, DuoNeb, Lasix, hydralazine, Imdur, magnesium, Tamiflu, Protonix, Coumadin. PHYSICAL EXAMINATION: GENERAL: Reveals elderly female. HEENT: Unremarkable. LUNGS: Clear breath sounds bilaterally. HEART: Normal heart sounds. ABDOMEN: Soft. NEUROLOGIC: Nonfocal. VITAL SIGNS: T-max 100 degrees Fahrenheit, blood pressure 110/50, heart rate 70, respirations 18, afebrile, O2 saturation 98% on 2 L oxygen. LABORATORY DATA: As discussed above. Hemoglobin 7. Creatinine 1.7. IMAGING: As discussed above. IMPRESSION: 1. Upper respiratory infection. 2. Cannot exclude pneumonia. 3. History of CHF. 4. Pacemaker. DISCUSSION: Agree with present management and care. Agree with Tamiflu and continuing antibiotics. Do not suspect acute pulmonary edema and follow carefully. Nael Knutson M.D. DR: RIAN JOB#: [id number] CC:
[2019-07-08] MEDS ORDERED: Enoxaparin 80mg Inj SUBQ SCH (21:00)
[2019-07-08] MEDS ORDERED: Azithromycin 500 MG in NS 275 ML IV SCH (21:00)
[2019-07-08] MEDS: Carvedilol 25mg Tab ORAL SCH (21:06)
--- NOTE | 2019-07-08 21:15 | Consultation ---
DATE OF CONSULTATION: 07/08/2019 CARDIOLOGY CONSULTATION CONSULTING PHYSICIAN: Jose Hawkins M.D. REFERRING PHYSICIANS: 1. Nicholas Garrison M.D. 2. Mike Sagastume M.D. REASON FOR CONSULTATION: Management of hypertension, atrial fibrillation, and the patient's pacemaker. HISTORY OF PRESENT ILLNESS: The patient is a 73-year-old lady with history of hypertension, history of mitral valve replacement, as well as history of pacemaker implantation on the left side that subsequently got infected. The patient eventually underwent a Medtronic pacemaker implantation on the right side in [place]. The patient presented to emergency room complaining of 1 day of cough and congestion as well as fever and chills. She lives in [place] and [place] and visiting [place] for the holiday. 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 The patient was admitted and a Cardiology consultation was obtained for further evaluation and management. It is of note that in the emergency room, pulse ox was 93 percent and otherwise vital signs were within normal range. REVIEW OF SYSTEMS: Review of systems was negative other than what was mentioned in the history of present illness. PAST MEDICAL HISTORY: As mentioned above. FAMILY HISTORY: Noncontributory. SOCIAL HISTORY: She lives at home. Does not smoke or drink alcohol. Lives in [place]. PHYSICAL EXAMINATION: VITAL SIGNS: Show blood pressure of 110/52, pulse 73, respirations 18, and temperature is 100. HEAD AND NECK: Showed no JVD. LUNGS: Clear. CARDIOVASCULAR: Shows irregular S1 and S2 with no gallop or murmur. Sternotomy scar is intact and the pacemaker in the right subclavian. ABDOMEN: Soft. EXTREMITIES: No pitting edema. LABORATORY AND DIAGNOSTIC DATA: Her EKG showed baseline atrial fibrillation with ventricular paced rhythm at the rate of 75. Laboratories show white count of 4.7, hemoglobin 10, hematocrit 30, and platelet count is 116,000. Sodium 124, potassium is 4.6, BUN of 23, creatinine 1.7, and glucose of 101. BNP 12,273. Troponin is negative. Preliminary echocardiogram showed ejection fraction of 35%. ASSESSMENT/PLAN: 1. Exacerbation of congestive heart failure with BNP of more than 12,000 and the ejection fraction of 35% by echocardiogram. Start the patient on Lasix 40 mg IV daily. Continue Coreg 25 mg b.i.d. and hold off on lisinopril and Aldactone at this time in view of renal failure. Creatinine 1.7. 2. Status post Medtronic pacemaker implantation. The patient is not sure about the type of the pacemaker. We will try to interrogate the pacemaker for further evaluation. 3. Chronic atrial fibrillation. The patient is on amiodarone 200 mg daily and Coreg 25 mg b.i.d. as well as warfarin. 4. Status post mitral valve replacement with the prosthetic valve, on Coumadin. Her INR is 2 and 3 and currently is 2.1. 5. Acute renal failure with creatinine of 1.7. 6. Anemia. 7. Thrombocytopenia. 8. Hyponatremia. Thank you very much Dr. Garrison for allowing me to participate in the care of this patient. Please do not hesitate to contact me for any questions regarding my evaluation. Jose Hawkins M.D. DR: SARAH JOB#: [id number] CC:
[2019-07-08] MEDS: HydrALAZINE 10mg Tab ORAL SCH (22:00)
[2019-07-09] VITALS (7 sets, daily range): BP systolic 100–134; BP diastolic 48–73
[2019-07-09] MEDS: HydrALAZINE 10mg Tab ORAL SCH ×3 (06:00→22:00)
[2019-07-09 07:29] LABS: HEMATOCRIT 29.4 % (37.0-47.0); MEAN CORPUSCULAR VOLUME 92 FL (80-99); PLATELET COUNT 105 K/UL (150-450); RED BLOOD COUNT 3.18 M/UL (4.20-5.40); RED CELL DISTRIBUTION WIDTH 12.5 % (11.6-14.8); WHITE BLOOD COUNT 2.9 K/UL (4.8-10.8)
--- NOTE | 2019-07-09 07:30 | NUR ---
NURSE NOTES: Received pt from MY/JAIRO RN. Pt is awake and alert. pt has NC 2LMP. Pt has intact iv access LAC 20G is running well. all needs attended, bed is locked and is in the lowest position, call light within easy reach. will continue to monitor.
--- NOTE | 2019-07-09 07:35 | NUR ---
HAND-OFF: Report given to JOSE Johnson. Pt is awake, eating breakfast in bed, and in stable condition. Plan of care endorsed.
[2019-07-09 08:02] LABS: ALANINE AMINOTRANSFERASE 77 U/L (12-78); ALBUMIN 3.1 G/DL (3.4-5.0); ALBUMIN/GLOBULIN RATIO 1.1 (1.0-2.7); ALKALINE PHOSPHATASE 101 U/L (46-116); ANION GAP 4 mmol/L (5-15); ASPARTATE AMINO TRANSFERASE 79 U/L (15-37); BILIRUBIN,TOTAL 0.4 MG/DL (0.2-1.0); BLOOD UREA NITROGEN 39 mg/dL (7-18); CALCIUM 8.7 MG/DL (8.5-10.1); CARBON DIOXIDE 29 MMOL/L (21-32); CHLORIDE 91 MMOL/L (98-107); CHOLESTEROL 157 MG/DL (< 200); CREATININE 1.7 MG/DL (0.55-1.30); FERRITIN 573 NG/ML (8-388); HDL CHOLESTEROL 75 MG/DL (40-60); POTASSIUM 4.5 MMOL/L (3.5-5.1); SODIUM 124 MMOL/L (136-145); TRIGLYCERIDES 41 MG/DL (30-150)
[2019-07-09 08:03] LABS: CREATINE KINASE 353 U/L (26-308); GAMMA GLUTAMYL TRANSPEPTIDASE 117 U/L (5-85); PHOSPHORUS 4.2 MG/DL (2.5-4.9)
[2019-07-09 08:08] LABS: INR 1.6 (0.9-1.1)
[2019-07-09 08:23] LABS: % IRON SATURATION 6 % (15-50); IRON 13 ug/dL (50-175); TOTAL IRON BINDING CAPACITY 214 ug/dL (250-450)
[2019-07-09] MEDS ORDERED: Spironolactone 25mg tab ORAL SCH (09:00)
--- NOTE | 2019-07-09 09:15 | NUR ---
PT EVALUATION NOTE Patient seen for initial evaluation. Patient is independent/supervised with all functional mobility, steady gait without assistive device. Skilled inpatient PT intervention not indicated, patient discharged from PT. Patient is cleared to ambulate with nursing supervision, Elizabeth GARCIA notified. Addendum: 07/09/19 at 1200 by LISA KEENE PT Amended: Links added.
--- NOTE | 2019-07-09 09:21 | General Progress Note ---
Assessment/Plan Status: stable Assessment/Plan: This is a 73-year-old female visiting from [place] with extensive cardiac problems including CABG, pacemaker, mitral valve replacement on Coumadin, CKD who presented with headache nausea vomiting fever and chills, flulike symptoms. She denies any chest pain or any significant shortness of breath. Her chest x -ray shows pulmonary edema and cardiomegaly, no definite consolidation. Her EKG is without any acute ST-T segment changes, her proBNP is elevated at around 12,000, her troponin is negative. She is hyponatremic with sodium of 127, her BUN is 27 and her creatinine is 1.5, she is anemic with hemoglobin of 10.9 and thrombocytopenic with platelet count of 135. Her influenza swab is negative for influenza A and B. Although her chest x-ray shows pulmonary edema and her proBNP is elevated clinically and based on her other labs she looks dehydrated. Problem list: 1. Possible influenza. Without sepsis. There may be superimposed pneumonia as well. 2. RENA on CKD. Of note she received Toradol and Lasix in the ER which is made the RENA worse 3. Coagulopathy due to Coumadin intake with INR of 2.1-->1.6. This is not in the therapeutic range for this patient with mechanical valve 4. Status post mechanical mitral valve, CABG, pacemaker. 5. History of congestive heart failure, unsure if systolic or diastolic. Clinically she is dry and dehydrated. 6. Anemia. No evidence of acute blood loss 7. Thrombocytopenia. Unknown baseline could be due to infection 8. Hyponatremia. This seems to be hypovolemic hyponatremia. 9. Abnormal LFTs. 10. Contraction alkalosis from dehydration Plan. telemetry Serial cardiac enzymes and EKG Treat empirically for community-acquired pneumonia and influenza even though her influenza swab is negative. She will receive IV ceftriaxone, azithromycin, Tamiflu renal dose at 30 mg twice daily Follow blood cultures. Obtain sputum cultures if able to give any Pulmonary consult with Dr. Knutson. Case discussed with and Recs appreciated Monitor renal function. Avoid nephrotoxic medications. Stop Lasix. Renal consultation with Dr. Hagen Gentle hydration per nephrology Hold Lasix and spironolactone. Monitor respiratory status, I's and O's 2D echocardiogram Cardiology consult with Monitor platelet count Resume home dose of Coumadin Hold lisinopril due to worsening renal function. Continue carvedilol and amiodarone Anemia work-up Monitor serum sodium Daily INR, goal 2.5-3.5. Oxygen as needed to keep oxygen saturations greater than 95% I spent 40 minutes on this encounter. Greater than 50% spent on counseling and care coordination. Case discussed with patient, RN and consultants I initiated goals of care discussion. POLST form will be provided and will try to sign by discharge from the hospital Time of this note may not reflect time of encounter. Subjective Date patient seen: Jul 09, 2019 Constitutional: Reports: fever, malaise Respiratory: Reports: cough, shortness of breath Gastrointestinal/Abdominal: Reports: no symptoms Allergies: Coded Allergies: No Known Allergies (Unverified , 07/07/19) Subjective no acute events overnight. Objective Last 24 Hour Vital Signs Date Time Temp Pulse Resp B/P (MAP) Pulse Ox O2 Delivery O2 Flow Rate FiO2 07/09/19 08:00 100.2 70 20 123/58 (79) 98 07/09/19 06:00 99/79 07/09/19 06:00 99/79 07/09/19 04:00 99.8 66 20 108/73 (85) 95 07/09/19 04:00 2.0 07/09/19 04:00 68 07/09/19 00:00 66 07/09/19 00:00 2.0 07/09/19 00:00 100.1 66 18 101/50 (67) 95 07/08/19 22:00 107/58 07/08/19 22:00 107/58 07/08/19 21:43 100.4 07/08/19 21:06 70 122/55 07/08/19 21:00 2.0 07/08/19 21:00 Nasal Cannula 2.0 07/08/19 20:00 99.7 69 18 118/54 (75) 95 07/08/19 20:00 67 07/08/19 16:00 71 07/08/19 16:00 99.1 70 20 106/60 (75) 98 07/08/19 16:00 2.0 07/08/19 12:00 100.0 73 20 110/52 (71) 97 07/08/19 12:00 2.0 07/08/19 12:00 73 07/08/19 11:24 76 121/65 07/08/19 11:14 Nasal Cannula 4.0 36 Intake and Output 07/08/19 07/09/19 19:00 07:00 Intake Total 150 ml 600 ml Balance 150 ml 600 ml Intake Oral 120 ml 240 ml IV Total 30 ml 360 ml # Voids 3 3 Laboratory Tests 07/08/19 11:09: Arterial Blood pH 7.443, Arterial Blood Partial Pressure CO2 34.7L, Arterial Blood Partial Pressure O2 126.0H, Arterial Blood HCO3 23.2, Arterial Blood Oxygen Saturation 98.3, Arterial Blood Base Excess -0.5, Chris Test Positive 07/08/19 14:15: Urine Osmolality 264L, Urine Random Sodium 68 07/09/19 06:25: White Blood Count 2.9L, Red Blood Count 3.18L, Hemoglobin 10.0L, Hematocrit 29.4L, Mean Corpuscular Volume 92, Mean Corpuscular Hemoglobin 31.4H, Mean Corpuscular Hemoglobin Concent 33.9, Red Cell Distribution Width 12.5, Platelet Count 105L, Mean Platelet Volume 6.1L, Neutrophils (%) (Auto) , Lymphocytes (%) (Auto) , Monocytes (%) (Auto) , Eosinophils (%) (Auto) , Basophils (%) (Auto) , Neutrophils % (Manual) [Pending], Lymphocytes % (Manual) [Pending], Platelet Estimate [Pending], Platelet Morphology [Pending], Prothrombin Time 16.4H, Prothromb Time International Ratio 1.6H, Sodium Level 124L, Potassium Level 4.5 , Chloride Level 91L, Carbon Dioxide Level 29, Anion Gap 4L, Blood Urea Nitrogen 39H, Creatinine 1.7H, Estimat Glomerular Filtration Rate , Glucose Level 90, Uric Acid 8.9H, Calcium Level 8.7, Phosphorus Level 4.2, Magnesium Level 1.9, Iron Level 13L, Total Iron Binding Capacity 214L, Percent Iron Saturation 6L, Unsaturated Iron Binding 201, Ferritin 573H, Total Bilirubin 0.4 , Gamma Glutamyl Transpeptidase 117H, Aspartate Amino Transf (AST/SGOT) 79H, Alanine Aminotransferase (ALT/SGPT) 77, Alkaline Phosphatase 101, Total Creatine Kinase 353H, C-Reactive Protein, Quantitative 3.1H, Total Protein 6.0L , Albumin 3.1L, Globulin 2.9, Albumin/Globulin Ratio 1.1, Triglycerides Level 41 , Cholesterol Level 157, LDL Cholesterol 69, HDL Cholesterol 75H, Cholesterol/ HDL Ratio 2.1L, Vitamin B12 Level 588, Folate 47.6, Thyroid Stimulating Hormone (TSH) 0.771 Height (Feet): 5 Height (Inches): 6.00 Weight (Pounds): 161 General Appearance: no apparent distress EENT: PERRL/EOMI Neck: supple Cardiovascular: normal rate, regular rhythm, no JVD Respiratory/Chest: crackles/rales Abdomen: normal bowel sounds, non tender, soft, no organomegaly Extremities: other - trace edema Edema: trace edema 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 Jul 09, 2019 09:21
[2019-07-09] MEDS: Carvedilol 25mg Tab ORAL SCH ×2 (09:23→21:02)
[2019-07-09] MEDS: Docusate 100mg cap ORAL SCH ×3 (09:23→13:36)
[2019-07-09] MEDS: Amiodarone 200mg tab ORAL SCH (09:23)
[2019-07-09] MEDS: Azithromycin 500 MG in D5W 275 ML IV SCH (09:23)
[2019-07-09] MEDS ORDERED: Enoxaparin 120 mg inj SUBQ ONE (09:45)
[2019-07-09] MEDS ORDERED: NaCl 3% 500ml 500 ML IV ONE (10:00)
--- NOTE | 2019-07-09 10:00 | NUR ---
NURSE NOTES: Dr WAHL visited pt and she is aware T 100.2 and WBC 12.9 and other lab results and V/S, no new order to RN. Will continue to monitor.
--- NOTE | 2019-07-09 10:53 | Pulmonology Progress Note ---
Assessment/Plan Assessment/Plan IMPRESSION: 1. Upper respiratory infection. 2. Cannot exclude pneumonia. 3. History of CHF. 4. Pacemaker. DISCUSSION: Agree with present management and care. Agree with Tamiflu and continuing antibiotics. Do not suspect acute pulmonary edema and follow carefully. Dr Alba will cover me till 07/20/19 Nael Knutson M.D. Subjective Interval Events: None new Constitutional: Reports: no symptoms HEENT: Repors: no symptoms Respiratory: Reports: dry cough Cardiovascular: Reports: no symptoms Gastrointestinal/Abdominal: Reports: no symptoms Allergies: Coded Allergies: No Known Allergies (Unverified , 07/07/19) Objective Last 24 Hour Vital Signs Date Time Temp Pulse Resp B/P (MAP) Pulse Ox O2 Delivery O2 Flow Rate FiO2 07/09/19 09:23 70 123/58 07/09/19 08:00 100.2 70 20 123/58 (79) 98 07/09/19 07:00 Nasal Cannula 4.0 36 07/09/19 06:00 99/79 07/09/19 06:00 99/79 07/09/19 04:00 99.8 66 20 108/73 (85) 95 07/09/19 04:00 2.0 07/09/19 04:00 68 07/09/19 00:00 66 07/09/19 00:00 2.0 07/09/19 00:00 100.1 66 18 101/50 (67) 95 07/08/19 22:00 107/58 07/08/19 22:00 107/58 07/08/19 21:43 100.4 07/08/19 21:06 70 122/55 07/08/19 21:00 2.0 07/08/19 21:00 Nasal Cannula 2.0 07/08/19 20:00 99.7 69 18 118/54 (75) 95 07/08/19 20:00 67 07/08/19 16:00 71 07/08/19 16:00 99.1 70 20 106/60 (75) 98 07/08/19 16:00 2.0 07/08/19 12:00 100.0 73 20 110/52 (71) 97 07/08/19 12:00 2.0 07/08/19 12:00 73 07/08/19 11:24 76 121/65 07/08/19 11:14 Nasal Cannula 4.0 36 Intake and Output 07/08/19 07/09/19 19:00 07:00 Intake Total 150 ml 600 ml Balance 150 ml 600 ml Intake Oral 120 ml 240 ml IV Total 30 ml 360 ml # Voids 3 3 General Appearance: no acute distress HEENT: normocephalic Respiratory/Chest: chest wall non-tender, lungs clear Cardiovascular: normal peripheral pulses Abdomen: normal bowel sounds Microbiology Date/Time Source Procedure Growth Status 07/07/19 18:41 Nasal Nares - Final Complete 07/07/19 18:41 Nasal Nares - Final Complete Laboratory Tests 07/08/19 11:09: Arterial Blood pH 7.443, Arterial Blood Partial Pressure CO2 34.7L, Arterial Blood Partial Pressure O2 126.0H, Arterial Blood HCO3 23.2, Arterial Blood Oxygen Saturation 98.3, Arterial Blood Base Excess -0.5, Chris Test Positive 07/08/19 14:15: Urine Osmolality 264L, Urine Random Sodium 68 07/09/19 06:25: White Blood Count 2.9L, Red Blood Count 3.18L, Hemoglobin 10.0L, Hematocrit 29.4L, Mean Corpuscular Volume 92, Mean Corpuscular Hemoglobin 31.4H, Mean Corpuscular Hemoglobin Concent 33.9, Red Cell Distribution Width 12.5, Platelet Count 105L, Mean Platelet Volume 6.1L, Neutrophils (%) (Auto) , Lymphocytes (%) (Auto) , Monocytes (%) (Auto) , Eosinophils (%) (Auto) , Basophils (%) (Auto) , Neutrophils % (Manual) [Pending], Lymphocytes % (Manual) [Pending], Platelet Estimate [Pending], Platelet Morphology [Pending], Prothrombin Time 16.4H, Prothromb Time International Ratio 1.6H, Sodium Level 124L, Potassium Level 4.5 , Chloride Level 91L, Carbon Dioxide Level 29, Anion Gap 4L, Blood Urea Nitrogen 39H, Creatinine 1.7H, Estimat Glomerular Filtration Rate , Glucose Level 90, Uric Acid 8.9H, Calcium Level 8.7, Phosphorus Level 4.2, Magnesium Level 1.9, Iron Level 13L, Total Iron Binding Capacity 214L, Percent Iron Saturation 6L, Unsaturated Iron Binding 201, Ferritin 573H, Total Bilirubin 0.4 , Gamma Glutamyl Transpeptidase 117H, Aspartate Amino Transf (AST/SGOT) 79H, Alanine Aminotransferase (ALT/SGPT) 77, Alkaline Phosphatase 101, Total Creatine Kinase 353H, C-Reactive Protein, Quantitative 3.1H, Total Protein 6.0L , Albumin 3.1L, Globulin 2.9, Albumin/Globulin Ratio 1.1, Triglycerides Level 41 , Cholesterol Level 157, LDL Cholesterol 69, HDL Cholesterol 75H, Cholesterol/ HDL Ratio 2.1L, Vitamin B12 Level 588, Folate 47.6, Thyroid Stimulating Hormone (TSH) 0.771 Current Medications Medications (Trade) Dose Ordered Sig/Carlos Route PRN Reason Start Time Stop Time Status Last Admin Dose Admin Acetaminophen (Tylenol) 650 mg Q4H PRN ORAL Mild Pain (Pain Scale 1-3) 07/08/19 00:00 08/07/19 00:00 07/08/19 14:03 Acetaminophen (Tylenol) 650 mg Q4H PRN ORAL fever 07/08/19 00:00 08/07/19 00:00 07/09/19 09:54 Albuterol/ Ipratropium (Albuterol/ Ipratropium) 3 ml Q6HRT PRN HHN Shortness of Breath 07/08/19 00:00 07/13/19 00:00 Amiodarone HCl (Cordarone) 200 mg DAILY ORAL 07/09/19 09:00 08/08/19 08:59 07/09/19 09:23 Azithromycin 500 mg/Dextrose 275 ml @ 275 mls/hr Q24HRS IV 07/09/19 10:00 07/12/19 10:59 07/09/19 09:23 Carvedilol (Coreg) 25 mg EVERY 12 HOURS ORAL 07/08/19 21:00 08/07/19 20:59 07/09/19 09:23 Ceftriaxone Sodium 1 gm/ Dextrose 55 ml @ 110 mls/hr Q24H IVPB 07/09/19 14:00 07/16/19 13:59 Dextrose (Dextrose 50%) 25 ml Q30M PRN IV Hypoglycemia 07/08/19 00:00 08/07/19 00:00 Dextrose (Dextrose 50%) 50 ml Q30M PRN IV Hypoglycemia 07/08/19 00:00 08/07/19 00:00 Docusate Sodium (Colace) 100 mg TID ORAL 07/08/19 18:00 08/07/19 08:59 07/09/19 09:23 Hydralazine HCl (Apresoline) 10 mg EVERY 8 HOURS ORAL 07/08/19 22:00 08/07/19 21:59 Isosorbide Dinitrate (Isordil) 10 mg EVERY 8 HOURS ORAL 07/08/19 22:00 08/07/19 21:59 Ondansetron HCl (Zofran) 4 mg Q4H PRN IVP Nausea & Vomiting 07/08/19 09:45 08/07/19 09:44 Oseltamivir Phosphate (Tamiflu) 30 mg DAILY ORAL 07/08/19 10:37 07/13/19 10:36 07/09/19 09:23 Pantoprazole (Protonix) 40 mg BID ORAL 07/08/19 18:00 08/07/19 17:59 07/09/19 09:23 Polyethylene Glycol (Miralax) 17 gm DAILYPRN PRN ORAL Constipation 07/08/19 00:00 08/07/19 00:00 Sodium Chloride 500 ml @ 30 mls/hr ONCE ONCE IV 07/09/19 10:00 07/10/19 02:39 07/09/19 09:23 Warfarin Sodium (Coumadin per pharmacy) 1 ea DAILY PRN MISC Per rx protocol 07/08/19 10:45 08/07/19 09:29 Warfarin Sodium (Coumadin) 5 mg ONCE ORAL 07/09/19 17:00 07/09/19 19:00 Nael Knutson MD Jul 09, 2019 10:53
--- NOTE | 2019-07-09 13:07 | NUR ---
CASE MANAGEMENT:REVIEW 07/09/19 SI: PNA. AC/CHR RENAL FAILURE H/O MECHANICAL MITRAL VALVE, CABG AND PACEMAKER 100.2 70 20 123/58 98% ON 2L/NC WBC-2.9 H/H-10.0/29.4 PLT-105 NA-124 BUN+39 CR+1.7 IS: IV ROCEPHIN Q24 IV AZITHROMYCIN Q24 IVF 500CC @30/HR COUMADIN 5MG PO X1 AMIODARONE PO QD HYDRALAZINE PO Q8HRS ISORDIL PO Q8HRS COREG PO Q12 TAMIFLU PO QD : TELEMETRY STATUS DCP: FROM HOME
[2019-07-09] MEDS: cefTRIAXone 1 GM in D5W 55 ML IVPB SCH (13:36)
--- NOTE | 2019-07-09 13:44 | NUR ---
NURSE NOTES: Colace wasted in med room.
--- NOTE | 2019-07-09 14:06 | Cardiac Electrophysiology PN ---
Assessment/Plan Assessment/Plan 1. Exacerbation of congestive heart failure with BNP of more than 12,000 and the ejection fraction of 35% by echocardiogram. On Lasix 40 mg IV daily, Coreg 25 mg b.i.d. and off on lisinopril and Aldactone at this time in view of renal failure. Creatinine 1.7. Lasix DCed by Dr Hagen 2. Status post [employer] Biventricular pacemaker implantation without atrial lead. We will try to interrogate the pacemaker for further evaluation. 3. Chronic atrial fibrillation. On amiodarone 200 mg daily and Coreg 25 mg b.i.d. as well as warfarin. 4. Status post mitral valve replacement with the prosthetic valve, on Coumadin. Her INR currently is 2.1. 5. Acute renal failure with creatinine of 1.7. 6. Anemia. 7. Thrombocytopenia. 8. Hyponatremia. Na 124. FU Dr Xiao CABEZAS RN Subjective Subjective In SR V paced Objective Last 24 Hour Vital Signs Date Time Temp Pulse Resp B/P (MAP) Pulse Ox O2 Delivery O2 Flow Rate FiO2 07/09/19 13:48 100/48 07/09/19 13:48 100/48 07/09/19 12:07 70 07/09/19 12:00 2.0 07/09/19 12:00 98.2 70 20 100/48 (65) 98 07/09/19 10:54 99.2 07/09/19 09:23 70 123/58 07/09/19 09:00 Nasal Cannula 2.0 07/09/19 08:00 100.2 70 20 123/58 (79) 98 07/09/19 08:00 2.0 07/09/19 07:27 71 07/09/19 07:00 Nasal Cannula 4.0 36 07/09/19 06:00 99/79 07/09/19 06:00 99/79 07/09/19 04:00 99.8 66 20 108/73 (85) 95 07/09/19 04:00 2.0 07/09/19 04:00 68 07/09/19 00:00 66 07/09/19 00:00 2.0 07/09/19 00:00 100.1 66 18 101/50 (67) 95 07/08/19 22:00 107/58 07/08/19 22:00 107/58 07/08/19 21:06 70 122/55 07/08/19 21:00 2.0 07/08/19 21:00 Nasal Cannula 2.0 07/08/19 20:00 99.7 69 18 118/54 (75) 95 07/08/19 20:00 67 07/08/19 16:00 71 07/08/19 16:00 99.1 70 20 106/60 (75) 98 07/08/19 16:00 2.0 Intake and Output 07/08/19 07/09/19 19:00 07:00 Intake Total 150 ml 600 ml Balance 150 ml 600 ml Intake Oral 120 ml 240 ml IV Total 30 ml 360 ml # Voids 3 3 Laboratory Tests Test 07/08/19 14:15 07/09/19 06:25 Urine Osmolality 264 mOsm/kg (429-449) L Urine Random Sodium 68 mmol/L (20-110) White Blood Count 2.9 K/UL (4.8-10.8) L Red Blood Count 3.18 M/UL (4.20-5.40) L Hemoglobin 10.0 G/DL (12.0-16.0) L Hematocrit 29.4 % (37.0-47.0) L Mean Corpuscular Volume 92 FL (80-99) Mean Corpuscular Hemoglobin 31.4 PG (27.0-31.0) H Mean Corpuscular Hemoglobin Concent 33.9 G/DL (32.0-36.0) Red Cell Distribution Width 12.5 % (11.6-14.8) Platelet Count 105 K/UL (150-450) L Mean Platelet Volume 6.1 FL (6.5-10.1) L Neutrophils (%) (Auto) % (45.0-75.0) Lymphocytes (%) (Auto) % (20.0-45.0) Monocytes (%) (Auto) % (1.0-10.0) Eosinophils (%) (Auto) % (0.0-3.0) Basophils (%) (Auto) % (0.0-2.0) Differential Total Cells Counted 100 Neutrophils % (Manual) 75 % (45-75) Lymphocytes % (Manual) 16 % (20-45) L Monocytes % (Manual) 9 % (1-10) Eosinophils % (Manual) 0 % (0-3) Basophils % (Manual) 0 % (0-2) Band Neutrophils 0 % (0-8) Platelet Estimate Decreased L Platelet Morphology Normal Hypochromasia 1+ Anisocytosis 1+ Prothrombin Time 16.4 SEC (9.30-11.50) H Prothromb Time International Ratio 1.6 (0.9-1.1) H Sodium Level 124 MMOL/L (136-145) L Potassium Level 4.5 MMOL/L (3.5-5.1) Chloride Level 91 MMOL/L (98-107) L Carbon Dioxide Level 29 MMOL/L (21-32) Anion Gap 4 mmol/L (5-15) L Blood Urea Nitrogen 39 mg/dL (7-18) H Creatinine 1.7 MG/DL (0.55-1.30) H Estimat Glomerular Filtration Rate mL/min (>60) Glucose Level 90 MG/DL (74-106) Uric Acid 8.9 MG/DL (2.6-7.2) H Calcium Level 8.7 MG/DL (8.5-10.1) Phosphorus Level 4.2 MG/DL (2.5-4.9) Magnesium Level 1.9 MG/DL (1.8-2.4) Iron Level 13 ug/dL (50-175) L Total Iron Binding Capacity 214 ug/dL (250-450) L Percent Iron Saturation 6 % (15-50) L Unsaturated Iron Binding 201 ug/dL (112-346) Ferritin 573 NG/ML (8-388) H Total Bilirubin 0.4 MG/DL (0.2-1.0) Gamma Glutamyl Transpeptidase 117 U/L (5-85) H Aspartate Amino Transf (AST/SGOT) 79 U/L (15-37) H Alanine Aminotransferase (ALT/SGPT) 77 U/L (12-78) Alkaline Phosphatase 101 U/L (46-116) Total Creatine Kinase 353 U/L (26-308) H C-Reactive Protein, Quantitative 3.1 mg/dL (0.00-0.90) H Total Protein 6.0 G/DL (6.4-8.2) L Albumin 3.1 G/DL (3.4-5.0) L Globulin 2.9 g/dL Albumin/Globulin Ratio 1.1 (1.0-2.7) Triglycerides Level 41 MG/DL (30-150) Cholesterol Level 157 MG/DL (< 200) LDL Cholesterol 69 mg/dL (<100) HDL Cholesterol 75 MG/DL (40-60) H Cholesterol/HDL Ratio 2.1 (3.3-4.4) L Vitamin B12 Level 588 PG/ML (193-986) Folate 47.6 NG/ML (8.6-58.9) Thyroid Stimulating Hormone (TSH) 0.771 uiU/mL (0.358-3.740) Microbiology Date/Time Source Procedure Growth Status 07/07/19 18:41 Nasal Nares - Final Complete 07/07/19 18:41 Nasal Nares - Final Complete Objective HEAD AND NECK: Showed no JVD. LUNGS: Clear. CARDIOVASCULAR: Shows irregular S1 and S2 with no gallop or murmur. Sternotomy scar is intact and the pacemaker in the right subclavian. ABDOMEN: Soft. EXTREMITIES: No pitting edema. Jose Hawkins MD Jul 09, 2019 14:06
[2019-07-09] MEDS ORDERED: Warfarin Sodium 5mg ORAL SCH (17:00)
--- NOTE | 2019-07-09 19:30 | NUR ---
NURSE NOTES: Received patient from Leatha GARCIA. Patient in bed, on room air, no s/s respiratory distress. Bed in low position, locked, call light within reach. Left forearm 22 gauge iv patent, dressing dry and intact, NS 3% infusing at 30ml/hr. Patient c/o cough.
--- NOTE | 2019-07-09 19:32 | NUR ---
HAND-OFF: Report given to TAMIA GARCIA. Pt is awake and stable. Addendum: 07/09/19 at 1937 by Elizabeth Soares RN ERROR Report given to COOPER WAGNER RN
--- NOTE | 2019-07-09 20:30 | NUR ---
NURSE NOTES: Received call back from Dr. Wang, covering for Dr. Sagastume. Obtained order for robitussin 200mg po q 4 hrs prn.
[2019-07-09] MEDS: guaiFENesin 100mg/5ml Liq ud ORAL PRN (21:02)
--- NOTE | 2019-07-09 22:00 | NUR ---
NURSE NOTES: SBP in the 100's. Held 2200 imdur and hydralazine.
[2019-07-10] VITALS (7 sets, daily range): BP systolic 90–141; BP diastolic 51–66
[2019-07-10] MEDS: guaiFENesin 100mg/5ml Liq ud ORAL PRN ×2 (01:54→05:46)
[2019-07-10] MEDS: HydrALAZINE 10mg Tab ORAL SCH ×3 (05:46→21:00)
--- NOTE | 2019-07-10 07:37 | NUR ---
HAND-OFF: Report given to Akira GARCIA.
--- NOTE | 2019-07-10 07:49 | NUR ---
NURSE NOTES: patient awake alert, no distress. no sob. no c/o pain. call light within reach. will monitor.
[2019-07-10] MEDS: Amiodarone 200mg tab ORAL SCH (08:39)
[2019-07-10] MEDS: Carvedilol 25mg Tab ORAL SCH ×2 (08:39→20:52)
[2019-07-10] MEDS: Docusate 100mg cap ORAL SCH ×3 (08:39→17:03)
--- NOTE | 2019-07-10 09:04 | General Progress Note ---
Assessment/Plan Status: stable, progressing Assessment/Plan: This is a 73-year-old female visiting from [place] with extensive cardiac problems including CABG, pacemaker, mitral valve replacement on Coumadin, CKD who presented with headache nausea vomiting fever and chills, flulike symptoms. She denies any chest pain or any significant shortness of breath. Her chest x -ray shows pulmonary edema and cardiomegaly, no definite consolidation. Her EKG is without any acute ST-T segment changes, her proBNP is elevated at around 12,000, her troponin is negative. She is hyponatremic with sodium of 127, her BUN is 27 and her creatinine is 1.5, she is anemic with hemoglobin of 10.9 and thrombocytopenic with platelet count of 135. Her influenza swab is negative for influenza A and B. Although her chest x-ray shows pulmonary edema and her proBNP is elevated clinically and based on her other labs she looks dehydrated. she is now much improved Problem list: 1. Possible influenza. Without sepsis. There may be superimposed pneumonia as well. 2. RENA on CKD stage 3. Of note she received Toradol and Lasix in the ER which is made the RENA worse 3. Coagulopathy due to Coumadin intake with INR of 2.1-->1.6->1.8. This is not in the therapeutic range for this patient with mechanical valve (2.5-3.5) ideally for her keep around 2.5, she is prone to bleeding 4. Status post mechanical mitral valve, CABG, pacemaker. 5. History of congestive heart failure, unsure if systolic or diastolic. Clinically she is dry and dehydrated. 6. Anemia. No evidence of acute blood loss 7. Thrombocytopenia. Unknown baseline could be due to infection 8. Hyponatremia. This seems to be hypovolemic hyponatremia. 9. Abnormal LFTs. 10. Contraction alkalosis from dehydration Plan. telemetry Serial cardiac enzymes and EKG Treat empirically for community-acquired pneumonia and influenza even though her influenza swab is negative. She will receive IV ceftriaxone, azithromycin, Tamiflu renal dose at 30 mg twice daily Follow blood cultures. Obtain sputum cultures if able to give any Pulmonary consult with Dr. Knutson. Case discussed with and Recs appreciated Monitor renal function. Avoid nephrotoxic medications. Stop Lasix. Renal consultation with Dr. Hagen Gentle hydration per nephrology Hold Lasix and spironolactone. Monitor respiratory status, I's and O's 2D echocardiogram, reviewed EF 35% Cardiology consult with Monitor platelet count Resume home dose of Coumadin Hold lisinopril due to worsening renal function. Continue carvedilol and amiodarone Anemia work-up Monitor serum sodium Daily INR, goal 2.5-3.5. Oxygen as needed to keep oxygen saturations greater than 95% Add Robitussin with codeine I spent 40 minutes on this encounter. Greater than 50% spent on counseling and care coordination. Case discussed with patient, RN and consultants I initiated goals of care discussion. POLST form will be provided and will try to sign by discharge from the hospital Time of this note may not reflect time of encounter. Subjective Date patient seen: Jul 10, 2019 ROS Limited/Unobtainable: No Respiratory: Reports: cough, shortness of breath Allergies: Coded Allergies: No Known Allergies (Unverified , 07/07/19) Subjective no acute events overnight. feeling much better. only c/o cough Objective Last 24 Hour Vital Signs Date Time Temp Pulse Resp B/P (MAP) Pulse Ox O2 Delivery O2 Flow Rate FiO2 07/10/19 08:39 77 113/55 07/10/19 08:00 98.9 77 18 113/55 (74) 94 07/10/19 07:48 Room Air 07/10/19 05:46 118/64 07/10/19 05:46 118/64 07/10/19 05:37 118/64 (82) 07/10/19 04:00 98.9 63 18 114/51 (72) 94 07/10/19 04:00 67 07/10/19 00:00 98.9 67 18 103/55 (71) 95 07/10/19 00:00 65 07/09/19 22:05 66 106/52 (70) 07/09/19 22:00 106/52 07/09/19 22:00 106/52 07/09/19 21:02 70 134/71 07/09/19 21:01 Room Air 07/09/19 21:00 Room Air 07/09/19 20:00 69 07/09/19 20:00 99.0 70 18 134/71 (92) 97 07/09/19 16:10 80 07/09/19 16:00 2.0 07/09/19 16:00 98.8 71 20 105/62 (76) 96 07/09/19 13:48 100/48 07/09/19 13:48 100/48 07/09/19 12:07 70 07/09/19 12:00 2.0 07/09/19 12:00 98.2 70 20 100/48 (65) 98 07/09/19 10:54 99.2 07/09/19 09:23 70 123/58 Intake and Output 07/09/19 07/10/19 19:00 07:00 Intake Total 1510 ml 270 ml Balance 1510 ml 270 ml Intake Oral 320 ml 240 ml IV Total 1190 ml 30 ml # Voids 8 3 # Bowel Movements 3 Laboratory Tests 07/10/19 07:45: Prothrombin Time [Pending], Prothromb Time International Ratio [Pending], Sodium Level [Pending], Potassium Level [Pending], Chloride Level [Pending], Carbon Dioxide Level [Pending], Blood Urea Nitrogen [Pending], Creatinine [ Pending], Estimat Glomerular Filtration Rate [Pending], Glucose Level [Pending] , Uric Acid [Pending], Calcium Level [Pending], Phosphorus Level [Pending], Magnesium Level [Pending], Total Bilirubin [Pending], Aspartate Amino Transf ( AST/SGOT) [Pending], Alanine Aminotransferase (ALT/SGPT) [Pending], Alkaline Phosphatase [Pending], Total Protein [Pending], Albumin [Pending], Globulin [ Pending] Height (Feet): 5 Height (Inches): 6.00 Weight (Pounds): 161 Objective General Appearance: no apparent distress, frequent coughing EENT: PERRL/EOMI Neck: supple Cardiovascular: normal rate, regular rhythm, no JVD Respiratory/Chest: rhonchi Abdomen: normal bowel sounds, non tender, soft, no organomegaly Extremities: other - trace edema Edema: trace edema Neurologic: waredresser II-XII grossly normal, no motor/sensory deficits, abnormal gait , oriented x 3 Skin: normal pigmentation, warm/dry, Nicholas Garrison M.D. Jul 10, 2019 09:04
[2019-07-10 09:09] LABS: INR 1.8 (0.9-1.1)
[2019-07-10 09:23] LABS: ALANINE AMINOTRANSFERASE 67 U/L (12-78); ALBUMIN 3.2 G/DL (3.4-5.0); ALBUMIN/GLOBULIN RATIO 1.2 (1.0-2.7); ALKALINE PHOSPHATASE 91 U/L (46-116); ANION GAP 8 mmol/L (5-15); ASPARTATE AMINO TRANSFERASE 76 U/L (15-37); BILIRUBIN,TOTAL 0.3 MG/DL (0.2-1.0); BLOOD UREA NITROGEN 39 mg/dL (7-18); CALCIUM 8.6 MG/DL (8.5-10.1); CARBON DIOXIDE 27 MMOL/L (21-32); CHLORIDE 100 MMOL/L (98-107); CREATININE 1.4 MG/DL (0.55-1.30); POTASSIUM 3.9 MMOL/L (3.5-5.1); SODIUM 135 MMOL/L (136-145)
[2019-07-10] MEDS: Azithromycin 500 MG in D5W 275 ML IV SCH (10:28)
--- NOTE | 2019-07-10 11:42 | Pulmonology Progress Note ---
Assessment/Plan Assessment/Plan IMPRESSION: 1. Upper respiratory infection. 2. Cardiomyopathy 3. History of CHF. 4. Pacemaker. 5. Cough DISCUSSION: Agree with present management and care. Agree with Tamiflu and continuing antibiotics. Tessalon PRN oxygen PRN monitor for change repeat imaging as needed impression, plan, and exam edited and reviewed in detail care discussed with RN Subjective Allergies: Coded Allergies: No Known Allergies (Unverified , 07/07/19) Subjective care noted co cough some sob no edema Objective Last 24 Hour Vital Signs Date Time Temp Pulse Resp B/P (MAP) Pulse Ox O2 Delivery O2 Flow Rate FiO2 07/10/19 08:39 77 113/55 07/10/19 08:12 70 07/10/19 08:00 98.9 77 18 113/55 (74) 94 07/10/19 07:48 Room Air 07/10/19 05:46 118/64 07/10/19 05:46 118/64 07/10/19 05:37 118/64 (82) 07/10/19 04:00 98.9 63 18 114/51 (72) 94 07/10/19 04:00 67 07/10/19 00:00 98.9 67 18 103/55 (71) 95 07/10/19 00:00 65 07/09/19 22:05 66 106/52 (70) 07/09/19 22:00 106/52 07/09/19 22:00 106/52 07/09/19 21:02 70 134/71 07/09/19 21:01 Room Air 07/09/19 21:00 Room Air 07/09/19 20:00 69 07/09/19 20:00 99.0 70 18 134/71 (92) 97 07/09/19 16:10 80 07/09/19 16:00 2.0 07/09/19 16:00 98.8 71 20 105/62 (76) 96 07/09/19 13:48 100/48 07/09/19 13:48 100/48 07/09/19 12:07 70 07/09/19 12:00 2.0 07/09/19 12:00 98.2 70 20 100/48 (65) 98 Intake and Output 07/09/19 07/10/19 19:00 07:00 Intake Total 1510 ml 270 ml Balance 1510 ml 270 ml Intake Oral 320 ml 240 ml IV Total 1190 ml 30 ml # Voids 8 3 # Bowel Movements 3 Objective WDWN NAD clear breath sounds bilaterally without rhonchi or wheeze [id number] without MRG NABS nontender no HSM no CCE nonfocal Microbiology Date/Time Source Procedure Growth Status 07/07/19 18:41 Nasal Nares - Final Complete 07/07/19 18:41 Nasal Nares - Final Complete Laboratory Tests 07/10/19 07:45: Prothrombin Time 18.5H, Prothromb Time International Ratio 1.8H, Sodium Level 135L, Potassium Level 3.9, Chloride Level 100, Carbon Dioxide Level 27, Anion Gap 8, Blood Urea Nitrogen 39H, Creatinine 1.4H, Estimat Glomerular Filtration Rate , Glucose Level 131H, Uric Acid 8.7H, Calcium Level 8.6, Phosphorus Level 3.0, Magnesium Level 1.8, Total Bilirubin 0.3, Aspartate Amino Transf (AST/SGOT ) 76H, Alanine Aminotransferase (ALT/SGPT) 67, Alkaline Phosphatase 91, Total Protein 5.8L, Albumin 3.2L, Globulin 2.6, Albumin/Globulin Ratio 1.2 Current Medications Medications (Trade) Dose Ordered Sig/Carlos Route PRN Reason Start Time Stop Time Status Last Admin Dose Admin Acetaminophen (Tylenol) 650 mg Q4H PRN ORAL Mild Pain (Pain Scale 1-3) 07/08/19 00:00 08/07/19 00:00 07/08/19 14:03 Acetaminophen (Tylenol) 650 mg Q4H PRN ORAL fever 07/08/19 00:00 08/07/19 00:00 07/09/19 09:54 Albuterol/ Ipratropium (Albuterol/ Ipratropium) 3 ml Q6HRT PRN HHN Shortness of Breath 07/08/19 00:00 07/13/19 00:00 Amiodarone HCl (Cordarone) 200 mg DAILY ORAL 07/09/19 09:00 08/08/19 08:59 07/10/19 08:39 Azithromycin 500 mg/Dextrose 275 ml @ 275 mls/hr Q24HRS IV 07/09/19 10:00 07/12/19 10:59 07/10/19 10:28 Carvedilol (Coreg) 25 mg EVERY 12 HOURS ORAL 07/08/19 21:00 08/07/19 20:59 07/10/19 08:39 Ceftriaxone Sodium 1 gm/ Dextrose 55 ml @ 110 mls/hr Q24H IVPB 07/09/19 14:00 07/16/19 13:59 07/09/19 13:36 Dextrose (Dextrose 50%) 25 ml Q30M PRN IV Hypoglycemia 07/08/19 00:00 08/07/19 00:00 Dextrose (Dextrose 50%) 50 ml Q30M PRN IV Hypoglycemia 07/08/19 00:00 08/07/19 00:00 Docusate Sodium (Colace) 100 mg TID ORAL 07/08/19 18:00 08/07/19 08:59 07/09/19 09:23 Guaifenesin (Robitussin) 200 mg Q4H PRN ORAL For Cough 07/09/19 20:30 08/08/19 20:29 07/10/19 05:46 Hydralazine HCl (Apresoline) 10 mg EVERY 8 HOURS ORAL 07/08/19 22:00 08/07/19 21:59 07/10/19 05:46 Isosorbide Dinitrate (Isordil) 10 mg EVERY 8 HOURS ORAL 07/08/19 22:00 08/07/19 21:59 07/10/19 05:46 Ondansetron HCl (Zofran) 4 mg Q4H PRN IVP Nausea & Vomiting 07/08/19 09:45 08/07/19 09:44 Oseltamivir Phosphate (Tamiflu) 30 mg DAILY ORAL 07/08/19 10:37 07/13/19 10:36 07/10/19 08:39 Pantoprazole (Protonix) 40 mg BID ORAL 07/08/19 18:00 08/07/19 17:59 07/10/19 08:39 Polyethylene Glycol (Miralax) 17 gm DAILYPRN PRN ORAL Constipation 07/08/19 00:00 08/07/19 00:00 Warfarin Sodium (Coumadin per pharmacy) 1 ea DAILY PRN MISC Per rx protocol 07/08/19 10:45 08/07/19 09:29 Warfarin Sodium (Coumadin) 5 mg ONCE ORAL 07/10/19 17:00 07/10/19 18:00 Sameer Alba MD Jul 10, 2019 11:42
[2019-07-10] MEDS ORDERED: Benzonatate 100mg Perles ORAL PRN (11:45)
[2019-07-10] MEDS: cefTRIAXone 1 GM in D5W 55 ML IVPB SCH (13:42)
[2019-07-10] MEDS: guaiFENesin w/Codeine 5ml Liq ud ORAL PRN ×2 (14:14→20:51)
[2019-07-10] MEDS ORDERED: NaCl 3% 500ml 250 ML IV ONE (15:00)
--- NOTE | 2019-07-10 15:55 | Nephrology Progress Note ---
Assessment/Plan Problem List: (1) Hyponatremia (2) Dehydration (3) Cardiomyopathy (4) Pneumonia Assessment Renal Failure likely mostly dehydration HypoNatremia Dehydration Pneumonia Anemia EjFx 35% Cardiomyopathy Plan 3% saline as needed Monitor lytes Mag supplement Afterload reduction per orders monitor lytes Subjective ROS Limited/Unobtainable: No Constitutional: Reports: malaise Objective Objective Last 24 Hour Vital Signs Date Time Temp Pulse Resp B/P (MAP) Pulse Ox O2 Delivery O2 Flow Rate FiO2 07/10/19 13:43 90/53 07/10/19 13:43 90/53 07/10/19 12:00 98.9 73 18 90/53 (65) 94 07/10/19 11:37 70 07/10/19 08:39 77 113/55 07/10/19 08:12 70 07/10/19 08:00 98.9 77 18 113/55 (74) 94 07/10/19 07:48 Room Air 07/10/19 05:46 118/64 07/10/19 05:46 118/64 07/10/19 05:37 118/64 (82) 07/10/19 04:00 98.9 63 18 114/51 (72) 94 07/10/19 04:00 67 07/10/19 00:00 98.9 67 18 103/55 (71) 95 07/10/19 00:00 65 07/09/19 22:05 66 106/52 (70) 07/09/19 22:00 106/52 07/09/19 22:00 106/52 07/09/19 21:02 70 134/71 07/09/19 21:01 Room Air 07/09/19 21:00 Room Air 07/09/19 20:00 69 07/09/19 20:00 99.0 70 18 134/71 (92) 97 07/09/19 16:10 80 07/09/19 16:00 2.0 07/09/19 16:00 98.8 71 20 105/62 (76) 96 Intake and Output 07/09/19 07/10/19 19:00 07:00 Intake Total 1510 ml 270 ml Balance 1510 ml 270 ml Intake Oral 320 ml 240 ml IV Total 1190 ml 30 ml # Voids 8 3 # Bowel Movements 3 Laboratory Tests 07/10/19 07:45: Prothrombin Time 18.5H, Prothromb Time International Ratio 1.8H, Sodium Level 135L, Potassium Level 3.9, Chloride Level 100, Carbon Dioxide Level 27, Anion Gap 8, Blood Urea Nitrogen 39H, Creatinine 1.4H, Estimat Glomerular Filtration Rate , Glucose Level 131H, Uric Acid 8.7H, Calcium Level 8.6, Phosphorus Level 3.0, Magnesium Level 1.8, Total Bilirubin 0.3, Aspartate Amino Transf (AST/SGOT ) 76H, Alanine Aminotransferase (ALT/SGPT) 67, Alkaline Phosphatase 91, Total Protein 5.8L, Albumin 3.2L, Globulin 2.6, Albumin/Globulin Ratio 1.2 Height (Feet): 5 Height (Inches): 6.00 Weight (Pounds): 161 General Appearance: no apparent distress, other - periodically coughs Cardiovascular: normal rate Respiratory/Chest: decreased breath sounds Abdomen: soft Jg Hagen MD Jul 10, 2019 15:55
[2019-07-10] MEDS ORDERED: Warfarin Sodium 5mg ORAL SCH (17:00)
--- NOTE | 2019-07-10 17:59 | Cardiac Electrophysiology PN ---
Assessment/Plan Assessment/Plan 1. Exacerbation of congestive heart failure with BNP of more than 12,000 and EF of 35% On Coreg 25 mg b.i.d. Hydralazine 10 tid and isordil 10 tid Off Lasix per Dr Hagen for renal failure 2. Status post Medtronic Biventricular pacemaker implantation without atrial lead. We will try to interrogate the pacemaker for further evaluation. 3. Chronic atrial fibrillation. On amiodarone 200 mg daily and Coreg 25 mg b.i.d. as well as warfarin. 4. Status post mitral valve replacement with the prosthetic valve, on Coumadin. 5. Acute renal failure with creatinine of 1.4. 6. Anemia. 7. Thrombocytopenia. 8. Hyponatremia. Na 124. FU Dr Xiao CABEZAS RN Subjective Subjective In SR V paced. No CP on Abx Objective Last 24 Hour Vital Signs Date Time Temp Pulse Resp B/P (MAP) Pulse Ox O2 Delivery O2 Flow Rate FiO2 07/10/19 16:00 98.9 71 18 120/63 (82) 94 07/10/19 15:30 71 07/10/19 13:43 90/53 07/10/19 13:43 90/53 07/10/19 12:00 98.9 73 18 90/53 (65) 94 07/10/19 11:37 70 07/10/19 08:39 77 113/55 07/10/19 08:12 70 07/10/19 08:00 98.9 77 18 113/55 (74) 94 07/10/19 07:48 Room Air 07/10/19 05:46 118/64 07/10/19 05:46 118/64 07/10/19 05:37 118/64 (82) 07/10/19 04:00 98.9 63 18 114/51 (72) 94 07/10/19 04:00 67 07/10/19 00:00 98.9 67 18 103/55 (71) 95 07/10/19 00:00 65 07/09/19 22:05 66 106/52 (70) 07/09/19 22:00 106/52 07/09/19 22:00 106/52 07/09/19 21:02 70 134/71 07/09/19 21:01 Room Air 07/09/19 21:00 Room Air 07/09/19 20:00 69 07/09/19 20:00 99.0 70 18 134/71 (92) 97 Intake and Output 07/09/19 07/10/19 18:59 06:59 Intake Total 1540 ml 270 ml Balance 1540 ml 270 ml Intake Oral 320 ml 240 ml IV Total 1220 ml 30 ml # Voids 8 3 # Bowel Movements 3 Laboratory Tests Test 07/10/19 07:45 Prothrombin Time 18.5 SEC (9.30-11.50) H Prothromb Time International Ratio 1.8 (0.9-1.1) H Sodium Level 135 MMOL/L (136-145) L Potassium Level 3.9 MMOL/L (3.5-5.1) Chloride Level 100 MMOL/L (98-107) Carbon Dioxide Level 27 MMOL/L (21-32) Anion Gap 8 mmol/L (5-15) Blood Urea Nitrogen 39 mg/dL (7-18) H Creatinine 1.4 MG/DL (0.55-1.30) H Estimat Glomerular Filtration Rate mL/min (>60) Glucose Level 131 MG/DL (74-106) H Uric Acid 8.7 MG/DL (2.6-7.2) H Calcium Level 8.6 MG/DL (8.5-10.1) Phosphorus Level 3.0 MG/DL (2.5-4.9) Magnesium Level 1.8 MG/DL (1.8-2.4) Total Bilirubin 0.3 MG/DL (0.2-1.0) Aspartate Amino Transf (AST/SGOT) 76 U/L (15-37) H Alanine Aminotransferase (ALT/SGPT) 67 U/L (12-78) Alkaline Phosphatase 91 U/L (46-116) Total Protein 5.8 G/DL (6.4-8.2) L Albumin 3.2 G/DL (3.4-5.0) L Globulin 2.6 g/dL Albumin/Globulin Ratio 1.2 (1.0-2.7) Microbiology Date/Time Source Procedure Growth Status 07/07/19 18:41 Nasal Nares - Final Complete 07/07/19 18:41 Nasal Nares - Final Complete Objective HEAD AND NECK: Showed no JVD. LUNGS: Clear. CARDIOVASCULAR: Shows irregular S1 and S2 with no gallop or murmur. Sternotomy scar is intact and the pacemaker in the right subclavian. ABDOMEN: Soft. EXTREMITIES: No pitting edema. Jose Hawkins MD Jul 10, 2019 17:59
--- NOTE | 2019-07-10 19:30 | NUR ---
NURSE NOTES: Received patient from Akira GARCIA. Patient in bed, on room air, coughing. and daughter at bedside. Family is concerned because nobody has communicated with the patient or family about what the plan of care is and what exactly is the patient's illness. Family also requested a cxr to follow up on the coughing. They are also concerned about their insurance because they are from [place] and [place] and insurance may not cover extended stay.
[2019-07-10] MEDS: Albuterol/Ipratropium 3ml neb HHN PRN (20:39)
--- NOTE | 2019-07-10 20:45 | NUR ---
NURSE NOTES: Respiratory arrived to administer breathing treatment. Patient states she felt better afterwards.
--- NOTE | 2019-07-10 21:15 | NUR ---
NURSE NOTES: Informed Dr. Pranav Martin of patient's and family's concerns and their request for cxr. Instructed to endorse to the dayshift team.
[2019-07-11] VITALS: BP 117/46
[2019-07-11 04:00] VITALS: BP 104/49
[2019-07-11 05:09] VITALS: BP 114/59
[2019-07-11] MEDS: HydrALAZINE 10mg Tab ORAL SCH (05:10)
[2019-07-11] MEDS: guaiFENesin w/Codeine 5ml Liq ud ORAL PRN (05:10)
[2019-07-11] MEDS: Albuterol/Ipratropium 3ml neb HHN PRN (05:56)
--- NOTE | 2019-07-11 07:16 | NUR ---
HAND-OFF: Report given to Linnette GARCIA.
[2019-07-11 07:19] LABS: INR 2.7 (0.9-1.1)
--- NOTE | 2019-07-11 07:46 | NUR ---
NURSE NOTES: Received patient from Yareli Paul. Patient is sleeping comfortably in bed at this time. No s/s of distress. Fall precautions in place. Call alcantar within patients reach. Will continue to monitor.
--- NOTE | 2019-07-11 07:51 | Pulmonology Progress Note ---
Assessment/Plan Assessment/Plan IMPRESSION: 1. Upper respiratory infection. 2. Cardiomyopathy 3. History of CHF. 4. Pacemaker. 5. Cough DISCUSSION: continue same and continuing antibiotics- noted. Tessalon PRN oxygen as needed monitor for change repeat imaging as needed impression, plan, and exam edited and reviewed in detail care discussed with RN Subjective Allergies: Coded Allergies: No Known Allergies (Unverified , 07/07/19) Subjective care noted mild cough some sob no edema Objective Last 24 Hour Vital Signs Date Time Temp Pulse Resp B/P (MAP) Pulse Ox O2 Delivery O2 Flow Rate FiO2 07/11/19 05:57 81 20 100 Room Air 21 76 20 98 07/11/19 05:10 114/59 07/11/19 05:10 114/59 07/11/19 05:09 75 114/59 (77) 07/11/19 04:00 98.6 64 18 104/49 (67) 95 07/11/19 04:00 62 07/11/19 00:00 99.1 63 18 117/46 (69) 92 07/11/19 00:00 64 07/10/19 21:00 Room Air 07/10/19 21:00 141/66 07/10/19 21:00 141/66 07/10/19 20:52 78 141/66 07/10/19 20:39 78 20 100 Room Air 21 72 20 100 07/10/19 20:39 72 20 99 Room Air 21 07/10/19 20:00 98.4 75 18 141/66 (91) 95 07/10/19 20:00 Room Air 21 07/10/19 20:00 75 07/10/19 16:00 98.9 71 18 120/63 (82) 94 07/10/19 15:30 71 07/10/19 13:43 90/53 07/10/19 13:43 90/53 07/10/19 12:00 98.9 73 18 90/53 (65) 94 07/10/19 11:37 70 07/10/19 08:39 77 113/55 07/10/19 08:12 70 07/10/19 08:00 98.9 77 18 113/55 (74) 94 Intake and Output 07/10/19 07/11/19 19:00 07:00 Intake Total 810 ml 250 ml Balance 810 ml 250 ml Intake Oral 700 ml IV Total 110 ml 250 ml # Voids 2 3 Objective WDWN NAD clear breath sounds bilaterally without rhonchi or wheeze [id number] without MRG NABS nontender no HSM no CCE nonfocal reviewed and edited Laboratory Tests 07/11/19 05:49: Prothrombin Time 26.9H, Prothromb Time International Ratio 2.7H Current Medications Medications (Trade) Dose Ordered Sig/Carlos Route PRN Reason Start Time Stop Time Status Last Admin Dose Admin Acetaminophen (Tylenol) 650 mg Q4H PRN ORAL Mild Pain (Pain Scale 1-3) 07/08/19 00:00 08/07/19 00:00 07/08/19 14:03 Acetaminophen (Tylenol) 650 mg Q4H PRN ORAL fever 07/08/19 00:00 08/07/19 00:00 07/09/19 09:54 Albuterol/ Ipratropium (Albuterol/ Ipratropium) 3 ml Q6HRT PRN HHN Shortness of Breath 07/08/19 00:00 07/13/19 00:00 07/11/19 05:56 Amiodarone HCl (Cordarone) 200 mg DAILY ORAL 07/09/19 09:00 08/08/19 08:59 07/10/19 08:39 Azithromycin 500 mg/Dextrose 275 ml @ 275 mls/hr Q24HRS IV 07/09/19 10:00 07/12/19 10:59 07/10/19 10:28 Benzonatate (Tessalon Perles) 100 mg TIDPRN PRN ORAL cough 07/10/19 11:45 08/09/19 11:44 07/10/19 17:27 Carvedilol (Coreg) 25 mg EVERY 12 HOURS ORAL 07/08/19 21:00 08/07/19 20:59 07/10/19 20:52 Ceftriaxone Sodium 1 gm/ Dextrose 55 ml @ 110 mls/hr Q24H IVPB 07/09/19 14:00 07/16/19 13:59 07/10/19 13:42 Dextrose (Dextrose 50%) 25 ml Q30M PRN IV Hypoglycemia 07/08/19 00:00 08/07/19 00:00 Dextrose (Dextrose 50%) 50 ml Q30M PRN IV Hypoglycemia 07/08/19 00:00 08/07/19 00:00 Docusate Sodium (Colace) 100 mg TID ORAL 07/08/19 18:00 08/07/19 08:59 07/09/19 09:23 Guaifenesin/ Codeine Phosphate (Robitussin with codeine) 5 ml Q4HR PRN ORAL For Cough 07/10/19 14:00 08/09/19 13:59 07/11/19 05:10 Hydralazine HCl (Apresoline) 10 mg EVERY 8 HOURS ORAL 07/08/19 22:00 08/07/19 21:59 07/11/19 05:10 Isosorbide Dinitrate (Isordil) 10 mg EVERY 8 HOURS ORAL 07/08/19 22:00 08/07/19 21:59 07/11/19 05:10 Ondansetron HCl (Zofran) 4 mg Q4H PRN IVP Nausea & Vomiting 07/08/19 09:45 08/07/19 09:44 Oseltamivir Phosphate (Tamiflu) 30 mg DAILY ORAL 07/08/19 10:37 07/13/19 10:36 07/10/19 08:39 Pantoprazole (Protonix) 40 mg BID ORAL 07/08/19 18:00 08/07/19 17:59 07/10/19 17:04 Polyethylene Glycol (Miralax) 17 gm DAILYPRN PRN ORAL Constipation 07/08/19 00:00 08/07/19 00:00 Warfarin Sodium (Coumadin per pharmacy) 1 ea DAILY PRN MISC Per rx protocol 07/08/19 10:45 08/07/19 09:29 Sameer Alba MD Jul 11, 2019 07:51
[2019-07-11 08:00] VITALS: BP 129/60
[2019-07-11] MEDS: Docusate 100mg cap ORAL SCH ×2 (09:00→13:00)
--- NOTE | 2019-07-11 09:05 | Nephrology Progress Note ---
Assessment/Plan Problem List: (1) Hyponatremia (2) Dehydration (3) Cardiomyopathy (4) Pneumonia Assessment Renal Failure likely mostly dehydration HypoNatremia Dehydration Pneumonia Anemia EjFx 35% Cardiomyopathy Plan no chem panel today 3% saline as needed Monitor lytes Mag supplement Afterload reduction per orders monitor lytes Subjective ROS Limited/Unobtainable: No Objective Objective Last 24 Hour Vital Signs Date Time Temp Pulse Resp B/P (MAP) Pulse Ox O2 Delivery O2 Flow Rate FiO2 07/11/19 08:00 98.2 83 18 129/60 (83) 94 07/11/19 05:57 81 20 100 Room Air 21 76 20 98 07/11/19 05:10 114/59 07/11/19 05:10 114/59 07/11/19 05:09 75 114/59 (77) 07/11/19 04:00 98.6 64 18 104/49 (67) 95 07/11/19 04:00 62 07/11/19 00:00 99.1 63 18 117/46 (69) 92 07/11/19 00:00 64 07/10/19 21:00 Room Air 07/10/19 21:00 141/66 07/10/19 21:00 141/66 07/10/19 20:52 78 141/66 07/10/19 20:39 78 20 100 Room Air 21 72 20 100 07/10/19 20:39 72 20 99 Room Air 21 07/10/19 20:00 98.4 75 18 141/66 (91) 95 07/10/19 20:00 Room Air 21 07/10/19 20:00 75 07/10/19 16:00 98.9 71 18 120/63 (82) 94 07/10/19 15:30 71 07/10/19 13:43 90/53 07/10/19 13:43 90/53 07/10/19 12:00 98.9 73 18 90/53 (65) 94 07/10/19 11:37 70 Intake and Output 07/10/19 07/11/19 19:00 07:00 Intake Total 810 ml 250 ml Balance 810 ml 250 ml Intake Oral 700 ml IV Total 110 ml 250 ml # Voids 2 3 Laboratory Tests 07/11/19 05:49: Prothrombin Time 26.9H, Prothromb Time International Ratio 2.7H Height (Feet): 5 Height (Inches): 6.00 Weight (Pounds): 161 General Appearance: no apparent distress Jg Hagen MD Jul 11, 2019 09:05
[2019-07-11] MEDS: Carvedilol 25mg Tab ORAL SCH (09:14)
[2019-07-11] MEDS: Amiodarone 200mg tab ORAL SCH (09:14)
[2019-07-11] MEDS: Azithromycin 500 MG in D5W 275 ML IV SCH (09:15)
[2019-07-11 09:21] LABS: ANION GAP 5 mmol/L (5-15); BLOOD UREA NITROGEN 38 mg/dL (7-18); CALCIUM 8.2 MG/DL (8.5-10.1); CARBON DIOXIDE 27 MMOL/L (21-32); CHLORIDE 98 MMOL/L (98-107); CREATININE 1.5 MG/DL (0.55-1.30); POTASSIUM 4.5 MMOL/L (3.5-5.1); SODIUM 130 MMOL/L (136-145)
--- NOTE | 2019-07-11 09:23 | General Progress Note ---
Assessment/Plan Status: stable Assessment/Plan: This is a 73-year-old female visiting from [place] with extensive cardiac problems including CABG, pacemaker, mitral valve replacement on Coumadin, CKD who presented with headache nausea vomiting fever and chills, flulike symptoms. She denies any chest pain or any significant shortness of breath. Her chest x -ray shows pulmonary edema and cardiomegaly, no definite consolidation. Her EKG is without any acute ST-T segment changes, her proBNP is elevated at around 12,000, her troponin is negative. She is hyponatremic with sodium of 127, her BUN is 27 and her creatinine is 1.5, she is anemic with hemoglobin of 10.9 and thrombocytopenic with platelet count of 135. Her influenza swab is negative for influenza A and B. Although her chest x-ray shows pulmonary edema and her proBNP is elevated clinically and based on her other labs she looks dehydrated. Problem list: 1. Possible influenza. Without sepsis. There may be superimposed pneumonia as well. 2. RENA on CKD. Of note she received Toradol and Lasix in the ER which is made the RENA worse 3. Coagulopathy due to Coumadin intake with INR of 2.1-->1.6. This is not in the therapeutic range for this patient with mechanical valve 4. Status post mechanical mitral valve, CABG, pacemaker. 5. History of congestive heart failure, unsure if systolic or diastolic. Clinically she is dry and dehydrated. 6. Anemia. No evidence of acute blood loss 7. Thrombocytopenia. Unknown baseline could be due to infection 8. Hyponatremia. This seems to be hypovolemic hyponatremia. 9. Abnormal LFTs. 10. Contraction alkalosis from dehydration Plan. telemetry Serial cardiac enzymes and EKG Treat empirically for community-acquired pneumonia and influenza even though her influenza swab is negative. She will receive IV ceftriaxone, azithromycin, Tamiflu renal dose at 30 mg twice daily Follow blood cultures. Obtain sputum cultures if able to give any Pulmonary consult with Dr. Knutson. Case discussed with and Recs appreciated Monitor renal function. Avoid nephrotoxic medications. Stop Lasix. Renal consultation with Dr. Hagen Gentle hydration per nephrology Hold Lasix and spironolactone. Monitor respiratory status, I's and O's 2D echocardiogram Cardiology consult with Monitor platelet count Resume home dose of Coumadin Hold lisinopril due to worsening renal function. Continue carvedilol and amiodarone Anemia work-up Monitor serum sodium Daily INR, goal 2.5-3.5. Oxygen as needed to keep oxygen saturations greater than 95% I spent 40 minutes on this encounter. Greater than 50% spent on counseling and care coordination. Case discussed with patient, RN and consultants I initiated goals of care discussion. POLST form will be provided and will try to sign by discharge from the hospital Time of this note may not reflect time of encounter. Subjective Date patient seen: Jul 11, 2019 Allergies: Coded Allergies: No Known Allergies (Unverified , 07/07/19) Subjective no acute events overnight. Objective Last 24 Hour Vital Signs Date Time Temp Pulse Resp B/P (MAP) Pulse Ox O2 Delivery O2 Flow Rate FiO2 07/11/19 09:14 83 129/60 07/11/19 08:00 98.2 83 18 129/60 (83) 94 07/11/19 05:57 81 20 100 Room Air 21 76 20 98 07/11/19 05:10 114/59 07/11/19 05:10 114/59 07/11/19 05:09 75 114/59 (77) 07/11/19 04:00 98.6 64 18 104/49 (67) 95 07/11/19 04:00 62 07/11/19 00:00 99.1 63 18 117/46 (69) 92 07/11/19 00:00 64 07/10/19 21:00 Room Air 07/10/19 21:00 141/66 07/10/19 21:00 141/66 07/10/19 20:52 78 141/66 07/10/19 20:39 78 20 100 Room Air 21 72 20 100 07/10/19 20:39 72 20 99 Room Air 21 07/10/19 20:00 98.4 75 18 141/66 (91) 95 07/10/19 20:00 Room Air 21 07/10/19 20:00 75 07/10/19 16:00 98.9 71 18 120/63 (82) 94 07/10/19 15:30 71 07/10/19 13:43 90/53 07/10/19 13:43 90/53 07/10/19 12:00 98.9 73 18 90/53 (65) 94 07/10/19 11:37 70 Intake and Output 1/1/20 1/2/20 19:00 07:00 Intake Total 810 ml 250 ml Balance 810 ml 250 ml Intake Oral 700 ml IV Total 110 ml 250 ml # Voids 2 3 Laboratory Tests 07/11/19 05:49: Prothrombin Time 26.9H, Prothromb Time International Ratio 2.7H, Sodium Level [ Pending], Potassium Level [Pending], Chloride Level [Pending], Carbon Dioxide Level [Pending], Blood Urea Nitrogen [Pending], Creatinine [Pending], Estimat Glomerular Filtration Rate [Pending], Glucose Level [Pending], Uric Acid [ Pending], Calcium Level [Pending], Phosphorus Level [Pending], Magnesium Level [ Pending], Total Bilirubin [Pending], Aspartate Amino Transf (AST/SGOT) [Pending] , Alanine Aminotransferase (ALT/SGPT) [Pending], Alkaline Phosphatase [Pending] , Total Protein [Pending], Albumin [Pending], Globulin [Pending] Height (Feet): 5 Height (Inches): 6.00 Weight (Pounds): 161 Nicholas Garrison M.D. Jul 11, 2019 09:23
[2019-07-11 09:26] LABS: ALANINE AMINOTRANSFERASE 59 U/L (12-78); ALBUMIN 3.1 G/DL (3.4-5.0); ALBUMIN/GLOBULIN RATIO 1.1 (1.0-2.7); ALKALINE PHOSPHATASE 104 U/L (46-116); ASPARTATE AMINO TRANSFERASE 69 U/L (15-37); BILIRUBIN,TOTAL 0.2 MG/DL (0.2-1.0); PHOSPHORUS 2.5 MG/DL (2.5-4.9)
--- NOTE | 2019-07-11 09:53 | CDS Physician Query ---
Clarification is required for compliance, coding accuracy, and to reflect severity of illness for this patient Dear Dr. Garrison Date: 07.11.19 CDS: Annamaria Rodriguez Progress Note: RENA on CKD. Of note she received Toradol and Lasix in the ER which is made the RENA worse. Please Clarify if you mean: Stages Description GFR [ ] CKD Stage 1 Caused by DM, HTN, etc. with kidney abnormality 90 mL/ min or more [ ] CKD Stage 2 Mild decrease in Kidney function 60 to 89 mL/min [x ] CKD Stage 3 Moderate decrease in kidney function 30 -59 [ ] CKD Stage 4 Severe decrease in kidney function 15-29 [ ] CKD Stage 5 Kidney failure; requiring dialysis or transplantation < 15 [ ] ESRD Patient requiring dialysis for > 3 months or kidney transplant irrespective of level of GFR; Applicable for 1 year after kidney transplant [ ] Other: [ ] Comment/Explanation: Present on Admission: [ x] Yes [ ] No [ ] Clinically Undetermined _lamont dorsey 07/11/2019 Physician signature Date Please also document in your Progress Notes and/or Discharge Summary and indicate if the condition was present on admission. ANNELIESE
[2019-07-11] MEDS ORDERED: CEFPODOXIME PR200 MG PO (10:58)
[2019-07-11] MEDS ORDERED: AZITHROMYCIN500 MG ORAL (10:58)
[2019-07-11] MEDS ORDERED: TAMIFLU30 MG ORAL (10:58)
[2019-07-11] MEDS ORDERED: ROBITUSSIN AC5 ML ORAL (10:58)
--- NOTE | 2019-07-11 10:59 | Discharge Summary ---
Discharge Summary Hospital Course Date of Admission Jul 07, 2019 at 21:20 Date of Discharge 07/11/2019 Admitting Diagnosis Pneumonia, congestive heart failure HPI Anuja Kennedy is a 73 year old female who was admitted on Jul 07, 2019 at 21:20 for Pneumonia/Congestive Heart Failure Consultations cardiology, nephrology, pulmonology Hospital Course This is a 73-year-old female visiting from [place] with extensive cardiac problems including CABG, pacemaker, mitral valve replacement on Coumadin, CKD who presented with headache nausea vomiting fever and chills, flulike symptoms. She denies any chest pain or any significant shortness of breath. Her chest x -ray shows pulmonary edema and cardiomegaly, no definite consolidation. Her EKG is without any acute ST-T segment changes, her proBNP is elevated at around 12,000, her troponin is negative. She is hyponatremic with sodium of 127, her BUN is 27 and her creatinine is 1.5, she is anemic with hemoglobin of 10.9 and thrombocytopenic with platelet count of 135. Her influenza swab is negative for influenza A and B. Although her chest x-ray shows pulmonary edema and her proBNP is elevated clinically and based on her other labs she looks dehydrated. Problem list: 1. Possible influenza. Without sepsis. There may be superimposed pneumonia as well. 2. RENA on CKD. Of note she received Toradol and Lasix in the ER which is made the RENA worse 3. Coagulopathy due to Coumadin intake with INR of 2.1-->1.6-->2.7. therapeutic range for this patient with mechanical valve 4. Status post mechanical mitral valve, CABG, pacemaker. 5. History of congestive heart failure, unsure if systolic or diastolic. Clinically she is dry and dehydrated. 6. Anemia. No evidence of acute blood loss 7. Thrombocytopenia. Unknown baseline could be due to infection 8. Hyponatremia. This seems to be hypovolemic hyponatremia. 9. Abnormal LFTs. 10. Contraction alkalosis from dehydration Plan. telemetry Serial cardiac enzymes and EKG Treat empirically for community-acquired pneumonia and influenza even though her influenza swab is negative. She will receive IV ceftriaxone, azithromycin, Tamiflu renal dose at 30 mg twice daily. Switch to oral. Follow blood cultures. Obtain sputum cultures if able to give any Pulmonary consult with Dr. Knutson. Case discussed with and Recs appreciated Monitor renal function. Avoid nephrotoxic medications. Stop Lasix. Renal consultation with Dr. Hagen Gentle hydration per nephrology Hold Lasix and spironolactone. Monitor respiratory status, I's and O's 2D echocardiogram, reviewed, EF 35% Cardiology consult with Monitor platelet count Resume home dose of Coumadin Hold lisinopril due to worsening renal function, can resume today on discharge. Continue carvedilol and amiodarone Anemia work-up Monitor serum sodium Daily INR, goal 2.5-3.5. Oxygen as needed to keep oxygen saturations greater than 95% I spent 40 minutes on this encounter. Greater than 50% spent on counseling and care coordination. Case discussed with patient, RN and consultants I initiated goals of care discussion. POLST form will be provided and will try to sign by discharge from the hospital Time of this note may not reflect time of encounter. Exam on discharge: General Appearance: no apparent distress, frequent coughing EENT: PERRL/EOMI Neck: supple Cardiovascular: normal rate, regular rhythm, no JVD Respiratory/Chest: rhonchi Abdomen: normal bowel sounds, non tender, soft, no organomegaly Extremities: other - trace edema Edema: trace edema Neurologic: cdc associate II-XII grossly normal, no motor/sensory deficits, abnormal gait , oriented x 3 Skin: normal pigmentation, warm/dry, Discharge Medications New Medications: Azithromycin (Azithromycin) 500 Mg Tablet 500 MG ORAL DAILY for 2 Days, #2 TAB Cefpodoxime Proxetil (Cefpodoxime Proxetil) 200 Mg Tablet 200 MG PO Q12HR for 3 Days, #6 TAB Oseltamivir Phosphate (Tamiflu) 30 Mg Capsule 30 MG ORAL TWICE A DAY for 2 Days, #4 CAP Guaifenesin/Codeine (Guaifenesin-Codeine Syrup) 5 Ml Liquid 5 ML ORAL Q4HR PRN for 7 Days, #5 ML Discharge Condition Upon Discharge: stable Discharge Disposition Patient was discharged to home Discharge Diagnoses: (1) Viral syndrome (2) Pneumonia (3) CKD (chronic kidney disease) stage 3, GFR 30-59 ml/min (4) Acute kidney injury superimposed on chronic kidney disease (5) Hyponatremia (6) Dehydration (7) Systolic CHF, acute on chronic Nicholas Garrison M.D. Jul 11, 2019 10:59
[2019-07-11 12:00] VITALS: BP 105/54
--- NOTE | 2019-07-11 12:45 | NUR ---
CASE MANAGEMENT:REVIEW 07/10/19 SI: PNA. AC/CHR RENAL FAILURE H/O MECHANICAL MITRAL VALVE, CABG AND PACEMAKER 98.9 73 18 90/53 94% ON RA BUN+39 CR+1.4 URIC ACID+8.7 IS: COUMADIN 5MG PO X1 IVF 250CC @ 30/HR IV ROCEPHIN Q24 IV AZITHROMYCIN Q24 AMIODARONE PO QD HYDRALAZINE PO Q8HRS : TELEMETRY STATUS 07/11/18 DISCHARGE HOME TODAY
--- NOTE | 2019-07-11 13:50 | NUR ---
NURSE NOTES: Patient discharge to home as per Dr. Garrison's order. Patient left floor ambulated with steady gait accompanied by and daughter. VSS. Discharge instructions provided and discussed with patient and verbalizes understanding. Medication prescription provided to patient. personnel monitor, ID band and IV removed from patient. All belongings was taken home by patient.
[2019-07-11] MEDS ORDERED: Tubing IV Secondary IV ONE (14:07)
== END 2019-07-11 14:08 | disposition home or self-care (01) | DRG 193 ==
LOC: EMR 18:45 → 2E 21:20 → EDBEDREQSVC 23:37 → EDBEDREQ 07-08 05:41
DX: J18.9 Pneumonia, unspecified organism (principal); I50.23 Acute on chronic systolic (congestive) heart failure; I48.20 Chronic atrial fibrillation, unspecified; N17.9 Acute kidney failure, unspecified; E87.1 Hypo-osmolality and hyponatremia; I42.9 Cardiomyopathy, unspecified; I13.0 Hypertensive heart and chronic kidney disease with heart failure and stage 1 through stage 4 chronic kidney disease, or unspecified chronic kidney disease; E86.0 Dehydration; Z95.0 Presence of cardiac pacemaker; N18.3 Chronic kidney disease, stage 3 (moderate); Z87.891 Personal history of nicotine dependence; I25.10 Atherosclerotic heart disease of native coronary artery without angina pectoris; Z95.1 Presence of aortocoronary bypass graft; Z95.2 Presence of prosthetic heart valve; R79.1 Abnormal coagulation profile; B34.9 Viral infection, unspecified; Z79.01 Long term (current) use of anticoagulants; Z66 Do not resuscitate
CPT/HCPCS: 36415; 36600; 71045; 80048; 80053; 80061; 81003; 82550; 82607; 82728; 82746; 82803; 82977; 83540; 83550; 83735; 83880; 83935; 84100; 84300; 84443; 84484; 84550; 85007; 85025; 85610; 85730; 86140; 86710; 86850; 86900; 86901; 93005; 93306; 94640; 94664; 96365; 96375; 99285; J2405; J7030; J7620